=== PATIENT | male | born 1980 | race Caucasian/White ===

== ENCOUNTER 2017-05-09 22:02 | Emergency (ER) | payer BC ==
[~2017-05-09] VITALS: Ht 177.8 cm; Wt 122.0 kg
[~2017-05-09 22:02] MED LIST: ALKA-SELTZER O1 EACH PO; AMITRIPTYLINE H25 MG PO; BACTRIM DS TAB1 EACH PO; BUSPIRONE HCL15 MG PO; CARAFATE1 GM PO; CARBAMAZEPINE200 M1 PO; CELEBREX200 MG PO; CEPHALEXIN500 MG PO; CYCLOBENZAPRINE10 MG PO; DIAZEPAM2 MG PO; METHOCARBAMOL750 MG PO; NORCO 5-325 TA1 EACH PO; PRILOSEC20 MG PO; PROTONIX40 MG PO; ROBAXIN-750750 MG PO; TAMIFLU75 MG PO; TEGRETOL XR100 MG PO; TOPIRAMATE50 MG PO; VALIUM5 MG PO; ZOFRAN ODT4 MG SL
[2017-05-09] MEDS ORDERED: DIAZEPAM2 MG PO (22:33)
--- NOTE | 2017-05-10 22:35 | EKG ---
[facility] [address] [facility] [place], [place] [address] Signed Normal sinus rhythm Normal ECG When compared with ECG of 02-SEP-2016 22:46, No significant change was found Confirmed by LILLIAN QUINTANILLA MD ([id number]) on 05/10/2017 10:35:14 PM Electronically Signed By: LILLIAN QUINTANILLA MD 05/10/17 2235 PATIENT NAME: SCOTTY STEPHENS ZINA Electrocardiogram DATE OF : 80 PHYSICIAN: LILLIAN QUINTANILLA MD REPORT #: [id number] REPORT IS CONFIDENTIAL AND NOT TO BE RELEASED WITHOUT AUTHORIZATION
== END 2017-05-09 22:58 | disposition home or self-care (01) ==
LOC: ED 22:02
DX: R07.89 Other chest pain (principal); K21.9 Gastro-esophageal reflux disease without esophagitis; F41.9 Anxiety disorder, unspecified; F17.200 Nicotine dependence, unspecified, uncomplicated; Z88.8 Allergy status to other drugs, medicaments and biological substances
CPT/HCPCS: 84484; 93005; 93010; 99283

== ENCOUNTER 2018-05-29 22:08 | Emergency (ER) | payer OTHER ==
[~2018-05-29] VITALS: Ht 177.8 cm; Wt 122.0 kg
--- NOTE | 2018-05-30 16:14 | EKG ---
[facility] [address] [facility] [place] [address] Signed Sinus tachycardia Nonspecific ST and T wave abnormality Abnormal ECG When compared with ECG of 09-MAY-2017 22:10, Nonspecific T wave abnormality now evident in Anterior leads Confirmed by LORY JAY MD ([id number]) on 05/30/2018 4:14:03 PM Electronically Signed By: LORY JAY MD 05/30/18 1614 PATIENT NAME: STEPHENSSCOTTYDolly IZAGUIRRE Electrocardiogram DATE OF : 80 PHYSICIAN: LORY JAY MD REPORT #: [id number] REPORT IS CONFIDENTIAL AND NOT TO BE RELEASED WITHOUT AUTHORIZATION
== END 2018-05-29 23:42 | disposition home or self-care (01) ==
LOC: ED 22:08
DX: R07.9 Chest pain, unspecified (principal); F17.200 Nicotine dependence, unspecified, uncomplicated
CPT/HCPCS: 71045; 80053; 84484; 85025; 85379; 93005; 93010; 99285

== ENCOUNTER → 2018-07-05 | Emergency (ER) | payer OTHER ==
[~2018-07-05] VITALS: Ht 177.8 cm; Wt 127.9 kg
--- OUTSIDE RECORDS SUMMARY | ~2018-07-05 | XMS | Encounter Summary ---
Demographics + + + | Address | [address] | | | [place] [address] | + + + | Home Phone | | + + + | Preferred Language | Unknown | + + + | Marital Status | | + + + | Mandaen Affiliation | Unknown | + + + | Race | Unknown | + + + | Ethnic Group | Unknown | + + + Author + + + | Author | [facility] | | | and [place] | + + + | Organization | [facility] | | | and [place] | + + + | Address | Unknown | + + + | Phone | Unavailable | + + + Support + + +---------+ + | Name | Relationship | Address | Phone | + + +---------+ + | Jessica Stahl | ECON | NA | | | | | Unknown | | + + +---------+ + Care Team Providers + +------+ + | Care Custodial Maintenance Worker Name | Role | Phone | + +------+ + | Fantasma Garcia MD | PCP | | + +------+ + Encounter Details +--------+ + + + + | Date | Type | Department | Care Team | Description | +--------+ + + + + | 04/04/ | Episode | [facility] | Marquita Millard | | | 2018 | Changes | GASTROENTEROLOGY | ROSIO Tellez | | | | | [address] [place] | | | | | | [address] | | | | | | [address] | | | | | | [phone] | | | +--------+ + + + + Social History + +-------+ +--------+ + | Tobacco Use | Types | Packs/Day | Years | Date | | | | | Used | | + +-------+ +--------+ + | Former Smoker | | 0.5 | 13 | 10/23/2001 - | | | | | | 12/21/2014 | + +-------+ +--------+ + + +------+---+ + | Smokeless Tobacco: | Chew | | Quit: | | Former User | | | 05/23/20 | | | | | 15 | + +------+---+ + + + +---------+ + | Alcohol Use | Drinks/We | oz/Week | Comments | | | ek | | | + + +---------+ + | Yes | 2 | 1.2 | FEW BEERS EACH WEEK | | | Standard | | | | | drinks or | | | | | | | | | | equivalen | | | | | t | | | + + +---------+ + + + + | Sex Assigned at | Date Recorded | | | | + + + | Not on file | | + + + as of this encounter Plan of Treatment +--------+---------+ + + + | Date | Type | Specialty | Care Team | Description | +--------+---------+ + + + | 07/09/ | Office | Physical Medicine | José Cano, | | | 2017 | Visit | and Rehabilitation | MD [address] | | | | | | [place] | | | | | | [address] | | | | | | | | +--------+---------+ + + + as of this encounter Visit Diagnoses Not on filein this encounter"
--- OUTSIDE RECORDS SUMMARY | ~2018-07-05 | XMS | Encounter Summary ---
Demographics + + + | Address | [address] | | | [place] [address] | + + + | Home Phone | | + + + | Preferred Language | Unknown | + + + | Marital Status | | + + + | Christian Affiliation | Unknown | + + + | Race | Unknown | + + + | Ethnic Group | Unknown | + + + Author + + + | Author | [facility] | | | and [place] | + + + | Organization | [facility] | | | [...] Team Providers + +------+ + | Care Cq Developer Name | Role | Phone | + +------+ + | Fantasma Garcia MD | PCP | | + +------+ + Encounter Details +--------+ + + + + | Date | Type | Department | Care Team | Description | +--------+ + + + + | 04/20/ | Ancillary | [facility] | Provider, | | | 2018 | Orders | MED CTR EXTERNAL | MD [address] | | | | | IMAGING | [address]te[address] | | | | | [phone] | [place] [address] | | +--------+ + + + + [...] Visit | and Rehabilitation | MD [address] | | | | | | [place] | | | | | | [address] | | | | | | | | +--------+---------+ + + + as of this encounter Results MRI Cervical Spine wo Contrast (04/11/2018 0755) + + + | Narrative | Performed At | + + + | External films for comparison only | [facility] | | | | | No results will be in the chart. | | + + + + +---------+ + + | Performing | Address | City/State/Zipcode | Phone Number | | Organization | | | | + +---------+ + + | [facility] | | | | + +---------+ + + XR Cervical Spine 4 or 5 Vws (04/02/2018 1200) + + + | Narrative | Performed At | + + + | External films for comparison only | [facility] | | | | | No results will be in the chart. | | + + + + +---------+ + + | Performing | Address | City/State/Zipcode | Phone Number | | Organization | | | | + +---------+ + + | [facility] | | | | + +---------+ + + FL Esophagram Complete (02/22/2017 1100) + + + | Narrative | Performed At | + + + | External films for comparison only | [facility] | | | | | No results will be in the chart. | | + + + + +---------+ + + | Performing | Address | City/State/Zipcode | Phone Number | | Organization | | | | + +---------+ + + | [facility] | | | | + +---------+ + + CT Abdomen Pelvis w Contrast (10/22/2016 0620) + + + | Narrative | Performed At | + + + | External films for comparison only | [facility] | | | | | No results will be in the chart. | | + + + + +---------+ + + | Performing | Address | City/State/Zipcode | Phone Number | | Organization | | | | + +---------+ + + | [facility] | | | | + +---------+ + + in this encounter Visit Diagnoses Not on filein this encounter"
--- OUTSIDE RECORDS SUMMARY | ~2018-07-05 | XMS | Clinical Summary ---
Demographics + + + | Address | [address] | | | [place] [address] | + + + | Home Phone | | + + + | Preferred Language | Unknown | + + + | Marital Status | | + + + | Denominational Affiliation | Unknown | + + + | Race | Unknown | + + + | Ethnic Group | Unknown | + + + Author + + + | Author | [facility] | | | and [place] | + + + | Organization | [facility] | | | and [...] Team Providers + +------+ + | Care Power Generation Technician Name | Role | Phone | + +------+ + | Fantasma Garcia MD | PP | | + +------+ + Allergies + + + + + + | Active Allergy | Reactions | Severity | Noted | Comments | | | | | Date | | + + + + + + | Buspirone | Nausea Only, Other | | 12/07/19 | dizzy | | | (See Comments) | | 16 | | + + + + + + Current Medications + + +--------+---------+------+------+-------+ | Prescription | Sig. | Disp. | Refills | Star | End | Statu | | | | | | t | Date | s | | | | | | Date | | | + + +--------+---------+------+------+-------+ | diazePAM (VALIUM) | Take 2 mg by mouth | | | 05/0 | | Activ | | 2 mg tablet | Daily. | | | 2/20 | | e | | | | | | 18 | | | + + +--------+---------+------+------+-------+ | nortriptyline | Take 25 mg by mouth | | | 05/0 | | Activ | | (PAMELOR) 25 mg | nightly. | | | 2/20 | | e | | capsule | | | | 18 | | | + + +--------+---------+------+------+-------+ | sucralfate | Take 1 tablet by | 120 | 1 | 05/0 | 05/0 | Activ | | (CARAFATE) 1 g | mouth 4 times daily. | tablet | | 07/12 | 07/12 | e | | tablet | | | | 18 | 19 | | + + +--------+---------+------+------+-------+ Active Problems + + + | Problem | Noted Date | + + + | NITO (obstructive sleep apnea) | 03/05/2018 | + + + | Morbid obesity with BMI of 40.0-44.9, adult (HCC) | 03/05/2018 | + + + | Incontinence of feces, unspecified fecal incontinence type | 03/05/2018 | + + + | JUSTUS (generalized anxiety disorder) | 01/24/2018 | + + + | Somatization disorder | 01/24/2018 | + + + | Burning sensation | 11/15/2016 | + + + | Episodes of speech arrest | 11/15/2016 | + + + | Severe anxiety | 11/15/2016 | + + + | Rectal bleeding | 12/24/2015 | + + + | Alcohol dependence, daily use (HCC) | 09/12/2014 | + + + | Nonspecific abnormal electrocardiogram (ECG) (EKG) | 09/12/2014 | + + + | Tobacco use disorder | 09/12/2014 | + + + | Headache | 08/05/2013 | + + + | Trigeminal neuralgia | 08/05/2013 | + + + | Gastroesophageal reflux disease, esophagitis presence not | | | specified | | + + + | HPV (human papilloma virus) infection | | + + + | Anxiety | | + + + | Depression | | + + + | Anal warts | | + + + | Pseudoseizures | | + + + | Genital herpes | | + + + | Dysphagia | | + + + | Chronic abdominal pain | | + + + Encounters +--------+ + + + + | Date | Type | Specialty | Care Team | Description | +--------+ + + + + | 06/26/ | Abstract | | José Cano | | | 2017 | | | | | +--------+ + + + + | 04/20/ | Ancillary | | [place], | | | 2017 | Orders | | MD Jeremi | | +--------+ + + + + | 04/20/ | Procedure | | | | | 2017 | Pass | | | | +--------+ + + + + | 04/12/ | Procedure | | | | | 2017 | Pass | | | | +--------+ + + + + | 04/11/ | Imaging | | [place], | | 2017 | Exam | | MD Jeremi | | +--------+ + + + + | 04/09/ | Telephone | | Isaiah Roe MD | Procedure | | 2017 | | | | | +--------+ + + + + | 04/04/ | Episode | | Marquita Millard | | | 2018 | Changes | | M RN | | +--------+ + + + + from Last 3 Months Immunizations + + + + | Name | Dates Previously Given | Next Due | + + + + | INFLUENZA, | 09/13/2014, 09/12/2008 | | | UNSPECIFIED | | | | FORMULATION | | | + + + + | TDAP, UNSPECIFIED | 02/19/2013 | | | FORMULATION | | | + + + + Family History + + +--------+ + | Medical History | Relation | Name | Comments | + + +--------+ + | Hypertension | Father | | | + + +--------+ + | Coronary artery | Maternal | | | | disease | Grandfath | | | | | er | | | + + +--------+ + | Hypertension | Mother | Jessica | | | | | Winter | | + + +--------+ + | Brain cancer | Other | | Cousin | + + +--------+ + | Heart disease | Paternal | | | | | Grandfath | | | | | er | | | + + +--------+ + | Stroke | Paternal | | | | | Grandfath | | | | | er | | | + + +--------+ + + +--------+--------+ + | Relation | Name | Status | Comments | + +--------+--------+ + | Father | | Alive | | + +--------+--------+ + | Maternal Grandfather | | | | + +--------+--------+ + | Mother | Jessica | Alive | | | | Winter | | | + +--------+--------+ + | Other | | | | + +--------+--------+ + | Paternal Grandfather | | | | + +--------+--------+ + Social History + +-------+ +--------+ + [...] | 05/23/20 | | | | | 17 | + +------+---+ + + + | Tobacco Cessation: Ready to Quit: No; Counseling Given: Yes | + + + + +---------+ + | Alcohol Use | Drinks/We | oz/Week | Comments | | | ek | | | + + +---------+ + | Yes | 14 Cans | 8.4 | | | | of beer | | | + + +---------+ + + + + | Sex Assigned at | Date Recorded | | | | + + + | Not on file | | + + + Last Filed Vital Signs + + + + | Vital Sign | Reading | Time Taken | + + + + | Blood Pressure | 102/80 | 02/28/2018956 PDT | + + + + | Pulse | 74 | 02/28/2018956 PDT | + + + + | Temperature | 36.6 C (97.8 F) | 02/28/2018956 PDT | + + + + | Respiratory Rate | 16 | 02/28/2018956 PDT | + + + + | Oxygen Saturation | 96% | 02/28/2018956 PDT | + + + + | Inhaled Oxygen | - | - | | Concentration | | | + + + + | Weight | 128.6 kg (283 lb 8.2 | 02/28/2018956 PDT | | | oz) | | + + + + | Height | 177.8 cm (5' 10") | 02/28/2018956 PDT | + + + + | Body Mass Index | 40.68 | 02/28/2018 0957 PDT | + + + + Plan of Treatment +--------+---------+ + + + | Date | Type | Specialty | Care Team | Description | +--------+---------+ + + + | 07/09/ | Office | | José Cano, | | | 2017 | Visit | | MD [address] | | | | | | [place] | | | | | | [address] | | | | | | | | +--------+---------+ + + + + + + + + | Health Maintenance | Due Date | Last Done | Comments | + + + + + | Vaccine: | | | | | Pneumococcal 19-64 | 9 | | | | (PPSV23 only) Medium | | | | | Risk (1 of - | | | | | PPSV23) | | | | + + + + + | Vaccine: Influenza | | 09/13/2014, 09/13/2014, | | | (#1) | 8 | 09/12/2008 | | + + + + + | Vaccine: | | 02/19/2013 | | | Dtap/Tdap/Td (2 - | 3 | | | | Td) | | | | + + + + + Procedures + +--------+ + + + | Procedure Name | Priori | Date/Time | Associated Diagnosis | Comments | | | ty | | | | + +--------+ + + + | MRI CERVICAL SPINE | Routin | 04/11/2018 | | Results for this | | WO CONTRAST | e | 075 PDT | | procedure are in the | | | | | | results section. | + +--------+ + + + | IMAGING REPORT - | | 04/11/2018 | | Results for this | | EXTERNAL SCAN | | 0000 PDT | | procedure are in the | | | | | | results section. | + +--------+ + + + from Last 3 Months Results MRI Cervical Spine wo Contrast (04/11/2018 075) + + + | Narrative | Performed [...] | | | + +---------+ + + IMAGING REPORT - EXTERNAL SCAN (04/11/2018) + + + | Narrative | Performed At | + + + | Ordered by an | | | unspecified provider. | | + + + from Last 3 Months Insurance +-------+--------+ +------+-------+---------+ | Payer | Benefi | Subscriber | Type | Phone | Address | | | t Plan | ID | | | | | | / | | | | | | | Group | | | | | +-------+--------+ +------+-------+---------+ | UMR | UMR | [id number] | PPO | | | | | PPO | | | | | +-------+--------+ +------+-------+---------+ + +--------+ +--------+ + + | Guarantor Name | Accoun | Relation to | Date | Phone | Billing Address | | | t Type | Patient | of | | | | | | | | | | + +--------+ +--------+ + + | [facility] | Person | Self | [birth year] | Home: | [address] | | [address]Fam | | 1980 | [phone] | [place] | | | [place]ick | | | [phone] | [address] | + +--------+ +--------+ + +
--- OUTSIDE RECORDS SUMMARY | ~2018-07-05 | XMS | Encounter Summary ---
Demographics + + + | Address | [address] | | | [place] [address] | + + + | Home Phone | | + + + | Preferred Language | Unknown | + + + | Marital Status | Single | + + + | Spiritism Affiliation | Unknown | + + + | Race | Unknown | + + + | Ethnic Group | Unknown | + + + Author + + + | Author | [facility] | + + + | Organization | [facility] | + + + | Address | Unknown | + + + | Phone | Unavailable | + + + Support + + + + + | Name | Relationship | Address | Phone | + + + + + | Iman Stahl | ECON | [place] | | | | | [address] | | + + + + + | Jose Wallace | ECON | [place], [place] | | | | | [address] | | + + + + + Care Team Providers + +------+ + | Care Pen Rider Name | Role | Phone | + +------+ + | Fantasma Garcia MD | PCP | | + +------+ + Encounter Details +--------+ + + + + | Date | Type | Department | Care Team | Description | +--------+ + + + + | 04/18/ | Ancillary | Located Within [facility] | See, Medical | Diagnosis unknown | | 2018 | Orders | [facility] | Record | | | | | [address] | | | | | | [place] [address] | | | | | | [phone] | | | +--------+ + + + + Social History + +-------+ +--------+------+ | Tobacco Use | Types | Packs/Day | Years | Date | | | | | Used | | + +-------+ +--------+------+ | Current Every Day | | 0.5 | | | | Smoker | | | | | + +-------+ +--------+------+ + +---+---+---+ | Smokeless Tobacco: | | | | | Never Used | | | | + +---+---+---+ + + +---------+ + | Alcohol Use | Drinks/We | oz/Week | Comments | | | ek | | | + + +---------+ + | Yes | 28 Cans | 16.8 | | | | of beer | | | + + +---------+ + + + + | Sex Assigned at | Date Recorded | | | | + + + | Not on file | | + + + as of this encounter Plan of Treatment Not on fileas of this encounter Results X-ray cervical spine 4-5 views (04/02/2018 4:29 PM) + + + | Narrative | Performed At | + + + | This is a non-reportable procedure without a radiologist report and | [facility] | | is used for image storage only | [facility]IOLOGY | + + + + + + + + | Performing | Address | City/State/Zipcode | Phone Number | | Organization | | | | + + + + + | [facility] | [address] | [place] [address] | | + + + + + in this encounter Visit Diagnoses + + | Diagnosis | + + | Diagnosis unknown | + + | Other unknown and unspecified cause of morbidity or mortality | + +"
--- OUTSIDE RECORDS SUMMARY | ~2018-07-05 | XMS | Encounter Summary ---
Demographics + + + | Address | [address] | | | [place] [address] | + + + | Home Phone | | + + + | Preferred Language | Unknown | + + + | Marital Status | Single | + + + | Pentecostalism Affiliation | Unknown | + + + | Race | Unknown | + + + | Ethnic Group | Unknown | + + + Author + + + | Author | [facility] | + + + | Organization | [facility] | + + + | Address | Unknown | + + + | Phone | Unavailable | + + + Support + + + + + | Name | Relationship | Address | Phone | + + + + + | Iman Stahl | ECON | [place] | | | | | [address] | | + + + + + | Jose Wallace | ECON | [place], [place] | | | | | [address] | | + + + + + Care Team Providers + +------+ + | Care Senior Software Qa Analyst Name | Role | Phone | + +------+ + | Fantasma Garcia MD | PCP | | + +------+ + Encounter Details +--------+ + + + + | Date | Type | Department | Care Team | Description | +--------+ + + + + | 04/18/ | Hospital | [facility] | See, Medical | Diagnosis unknown | | 2018 | Encounter | [facility] | Record | | | | | RADIOLOGY [address] | | | | | [address] | | | | | | [place] [address] | | | | | | [phone] | | | +--------+ + + + [...] + + + as of this encounter Medications at Time of Discharge + + +--------+---------+ + + | Medication | Sig. | Disp. | Refills | Start | End Date | | | | | | Date | | + + +--------+---------+ + + | Vit-Fe | Take 1 tablet by | 30 | 1 | 09/13/20 | | | Fumarate-FA | mouth daily. | tablet | | 14 | | | ( PLUS | | | | | | | VITAMIN) 27-1 MG | | | | | | | tablet | | | | | | + + +--------+---------+ + + as of this encounter Plan of Treatment Not on fileas of this encounter Procedures + +--------+ + + + | Procedure Name | Priori | Date/Time | Associated Diagnosis | Comments | | | ty | | | | + +--------+ + + + | XR CERVICAL SPINE | Routin | 04/02/2018 | Diagnosis unknown | Results for this | | MIN 4 VIEWS | e | 4:29 PM | | procedure are in the | | | | PDT | | results section. | + +--------+ + + + in this encounter Results X-ray cervical spine 4-5 views (04/02/2018 4:29 PM) + + + | Narrative | Performed At | + + + | This is a non-reportable procedure without a radiologist report and | [facility] | | is used for image storage only | [facility] | + + + + + + + + | Performing | Address | City/State/Zipcode | Phone Number | | Organization | | | | + + + + + | [facility] | [address] | [place] [address] | | + + + + + in this encounter Visit Diagnoses + + | Diagnosis | + + | Diagnosis unknown | + + | Other unknown and unspecified cause of morbidity or mortality | + +"
--- OUTSIDE RECORDS SUMMARY | ~2018-07-05 | XMS | Clinical Summary ---
Demographics + + + | Address | [address] | | | [place] [address] | + + + | Home Phone | | + + + | Preferred Language | Unknown | + + + | Marital Status | | + + + | Buddhist Affiliation | Unknown | + + + | Race | White | + + + | Ethnic Group | Not or | + + + Author + + + | Author | [facility] | + + + | Organization | [facility] | + + + | Address | Unknown | + + + | Phone | Unavailable | + + + Support +------+ +---------+ + | Name | Relationship | Address | Phone | +------+ +---------+ + | NONE | ECON | Unknown | Unavailable | +------+ +---------+ + Care Team Providers + +------+ + | Care Pillowcase Folder Name | Role | Phone | + +------+ + | Fantasma Garcia MD | PP | | + +------+ + Source Comments [facility] on both [facility] and [facility] Allergies + + + + + + | Active Allergy | Reactions | Severity | Noted | Comments | | | | | Date | | + + + + + + | Buspirone | Nausea, Unknown | | 04/01/20 | dizzy | | | | | 16 | | + + + + + + Current Medications + +------+-------+---------+------+------+-------+ | Prescription | Sig. | Disp. | Refills | Star | End | Statu | | | | | | t | Date | s | | | | | | Date | | | + +------+-------+---------+------+------+-------+ | diazepam 2 mg oral | | | 0 | 05/2 | | Activ | | tablet | | | | 0/20 | | e | | | | | | 16 | | | + +------+-------+---------+------+------+-------+ | ondansetron ODT 4 | | | 0 | 04/0 | | Activ | | mg oral | | | | 6/20 | | e | | tablet,disintegratin | | | | 16 | | | | g | | | | | | | + +------+-------+---------+------+------+-------+ Active Problems + + + | Problem | Noted Date | + + + | JUSTUS (generalized anxiety disorder) | | + + + | Somatization disorder | | + + + | Pseudoseizures | | + + + Social History + +-------+ +--------+------+ | Tobacco Use | Types | Packs/Day | Years | Date | | | | | Used | | + +-------+ +--------+------+ | Never Smoker | | | | | + +-------+ +--------+------+ + + +---------+ + | Alcohol Use | Drinks/We | oz/Week | Comments | | | ek | | | + + +---------+ + | Yes | 2 | 1.2 | | | | Standard | | | [...] + + + | Blood Pressure | 127/85 | 04/01/2016 10:50 AM PDT | + + + + | Pulse | 74 | 04/01/2016 10:50 AM PDT | + + + + | Temperature | - | - | + + + + | Respiratory Rate | 16 | 04/01/2016 10:50 AM PDT | + + + + | Oxygen Saturation | - | - | + + + + | Inhaled Oxygen | - | - | | Concentration | | | + + + + | Weight | 76.7 kg (169 lb 1.6 | 04/01/2016 10:50 AM PDT | | | oz) | | + + + + | Height | 177.8 cm (5' 10") | 04/01/2016 10:50 AM PDT | + + + + | Body Mass Index | 24.26 | 04/01/2016 10:50 AM PDT | + + + + Plan of Treatment + + + + + | Health Maintenance | Due Date | Last Done | Comments | + + + + + | INFLUENZA VACCINE | | | | | (FLU SHOT) | 8 | | | + + + + + Results Not on filefrom Last 3 Months Insurance + +--------+ +------+ + + | Payer | Benefi | Subscriber | Type | Phone | Address | | | t Plan | ID | | | | | | / | | | | | | | Group | | | | | + +--------+ +------+ + + | [employer] | BCBS | [id number] | PPO | [phone] | [address] [place] | | SHIELD | OUT OF | [phone] | [phone] | [place], [place] | | | [place] | | | | [phone] | + +--------+ +------+ + + + +--------+ +--------+ + + | Guarantor Name | Accoun | Relation to | Date | Phone | Billing Address | | | t Type | Patient | of | | | | | | | | | | + +--------+ +--------+ + + | CH[facility] W[facility]ACE | Person | Self | [birth year] | Home: | [address] | | | al/Fam | | 1979 | [phone] | [place] [address] | | | rick | | | [phone] | | + +--------+ +--------+ + +
--- OUTSIDE RECORDS SUMMARY | ~2018-07-05 | XMS | Encounter Summary ---
Demographics + + + | Address | [address] | | | [place] [address] | + + + | Home Phone | | + + + | Preferred Language | Unknown | + + + | Marital Status | | + + + | Adventism Affiliation | Unknown | + + + | Race | Unknown | + + + | Ethnic Group | Unknown | + + + Author + + + | Author | [facility] | | | and [place] | + + + | Organization | [facility] | | | [...] Team Providers + +------+ + | Care Skull Chopper Name | Role | Phone | + +------+ + | Fantasma Garcia MD | PCP | | + +------+ + Reason for Visit + + + | Reason | Comments | + + + | Procedure | | + + + Encounter Details +--------+ + + + + | Date | Type | Department | Care Team | Description | +--------+ + + + + | 04/09/ | Telephone | [facility] | Isaiah Roe MD | Procedure | | 2018 | | GASTROENTEROLOGY | [address], [place] | | | | | [address] | [address] [place], [place] | | | | | [address] [place], [place] | [address] | | | | | [address] | | | | | | [phone] | | | +--------+ + + + [...] [place] | | | | | | [address] | | | | | | | | +--------+---------+ + + + as of this encounter Visit Diagnoses Not on filein this encounter"
--- OUTSIDE RECORDS SUMMARY | ~2018-07-05 | XMS | Encounter Summary ---
Demographics + + + | Address | [address] | | | [place] [address] | + + + | Home Phone | | + + + | Preferred Language | Unknown | + + + | Marital Status | | + + + | Baptist Affiliation | Unknown | + + + | Race | Unknown | + + + | Ethnic Group | Unknown | + + + Author + + + | Author | [facility] | | | and [place] | + + + | Organization | [facility] | | | [...] Team Providers + +------+ + | Care Sugar Presser Name | Role | Phone | + +------+ + | Fantasma Garcia MD | PCP | | + +------+ + Encounter Details +--------+ + + + + | Date | Type | Department | Care Team | Description | +--------+ + + + + | 04/12/ | Procedure | [facility] | | | | 2018 | Pass | [facility] OP | | | | | | [address] | | | | | | [place] | | | | | | [address] | | | | | | [phone] | | | +--------+ + + + [...] | Visit | and Rehabilitation | [address] | | | | | | [place] | | | | | | [address] | | | | | | | | +--------+---------+ + + + as of this encounter Visit Diagnoses Not on filein this encounter"
--- OUTSIDE RECORDS SUMMARY | ~2018-07-05 | XMS | Encounter Summary ---
Demographics + + + | Address | [address] | | | [place] [address] | + + + | Home Phone | | + + + | Preferred Language | Unknown | + + + | Marital Status | Single | + + + | Jew Affiliation | Unknown | + + + | Race | Unknown | + + + | Ethnic Group | Unknown | + + + Author + + + | Author | [facility] | + + + | Organization | [facility] | + + + | Address | Unknown | + + + | Phone | Unavailable | + + + Support + + + + + | Name | Relationship | Address | Phone | + + + + + | Iman Stahl | ECON | [place] | | | | | [address] | | + + + + + | Jose Wallace | ECON | [place], [place] | | | | | [address] | | + + + + + Care Team Providers + +------+ + | Care Supervising Editor Trailer Name | Role | Phone | + +------+ + | Fantasma Garcia MD | PCP | | + +------+ + Reason for Visit MRI/CAT Scan (Routine) + +--------+ + + + + | Status | Reason | Specialty | Diagnoses / | Referred By | Referred To | | | | | Procedures | Contact | Contact | + +--------+ + + + + | Pending | | Radiology | Diagnoses | See, | | | Review | | | Diagnosis | Medical | | | | | | unknown | Record | | | | | | Procedures | | | | | | | MRI cervical | | | | | | | spine | | | | | | | without | | | | | | | contrast | | | + +--------+ + + + + Encounter Details +--------+ + + + + | Date | Type | Department | Care Team | Description | +--------+ + + + + | 04/18/ | Hospital | [facility] | See, Medical | Diagnosis unknown | | 2018 | Encounter | [facility] | Record | | | | | RADIOLOGY [address] | | | | | | [address] | | | | | | [place] [address] | | | | | | [phone] | | | +--------+ + + + [...] CERVICAL SPINE | Routin | 04/11/2018 | Diagnosis unknown | Results for this | | WO CONTRAST | e | 4:30 PM | | procedure are in the | | | | PDT | | results section. | + +--------+ + + + in this encounter Results MRI cervical spine without contrast (04/11/2018 4:30 PM) + + + | Narrative | Performed At | + + + | This is a non-reportable procedure without a radiologist report and | [facility] | | is used for image storage only | [facility]IOLOGY | + + + + + + + + | Performing | Address | City/State/Zipcode | Phone Number | | Organization | | | | + + + + + | [facility] | [address] | [place] [address] | | + + + + + in this encounter Visit Diagnoses + + | Diagnosis | + + | Diagnosis unknown | + + | Other unknown and unspecified cause of morbidity or mortality | + +"
--- OUTSIDE RECORDS SUMMARY | ~2018-07-05 | XMS | Encounter Summary ---
Demographics + + + | Address | [address] | | | [place] [address] | + + + | Home Phone | | + + + | Preferred Language | Unknown | + + + | Marital Status | Single | + + + | Adventist Affiliation | Unknown | + + + | Race | Unknown | + + + | Ethnic Group | Unknown | + + + Author + + + | Author | [facility] | + + + | Organization | [facility] | + + + | Address | Unknown | + + + | Phone | Unavailable | + + + Support + + + + + | Name | Relationship | Address | Phone | + + + + + | Iman Stahl | ECON | [place] | | | | | [address] | | + + + + + | Jose Wallace | ECON | [place], [place] | | | | | [address] | | + + + + + Care Team Providers + +------+ + | Care Health Occupations Teacher Name | Role | Phone | + +------+ + | Fantasma Garcia MD | PCP | | + +------+ + Encounter Details +--------+ + + + + | Date | Type | Department | Care Team | Description | +--------+ + + + + | 04/18/ | Hospital | [facility] PH[facility]IAN | See, Medical | Diagnosis unknown | | 2018 | Encounter | [facility] | Record | | | | | RADIOLOGY [address] | | | | | | [address] | | | | | | [place] [address] | | | | | | [phone] | | | +--------+ + + + [...] | + + + + + | [facility] | [address] | [place] [address] | | + + + + + in this encounter Visit Diagnoses + + | Diagnosis | + + | Diagnosis unknown | + + | Other unknown and unspecified cause of morbidity or mortality | + +"
--- OUTSIDE RECORDS SUMMARY | ~2018-07-05 | XMS | Clinical Summary ---
Demographics + + + | Address | [address] | | | [place] [address] | + + + | Home Phone | | + + + | Preferred Language | Unknown | + + + | Marital Status | | + + + | Quaker Affiliation | Unknown | + + + [...] Team Providers + +------+ + | Care Bid Writer Name | Role | Phone | + +------+ + | Fantasma Garcia MD | PP | | + +------+ + Source Comments [facility]OMA is fully live on both [facility] and [facility] Allergies + + + + + + [...] | PPO | +1-- | [address] [address] [place] | | SHIELD | OUT OF | x | | [address] | [place], [place] | | | [place] | | | | [address] | + +--------+ +------+ + + + [...] | | al/Fam | | 1979 | +1-- | [place] [address] | | | [place] | | | [birth year] | | + +--------+ +--------+ + +
--- OUTSIDE RECORDS SUMMARY | ~2018-07-05 | XMS | Clinical Summary ---
Demographics + + + | Address | [address] | | | [place] [address] | + + + | Home Phone | | + + + | Preferred Language | Unknown | + + + | Marital Status | | + + + | Hinduism Affiliation | Unknown | + + + | Race | Unknown | + + + | Ethnic Group | Unknown | + + + Author + + + | Author | [facility] | | | and [place] | + + + | Organization | [facility] | | | and [...] Team Providers + +------+ + | Care Robotic Machine Tender Production Name | Role | Phone | + [...] [place] | | | | | | [address] | | | | | | | [...] +-------+--------+ +------+-------+---------+ | UMR | UMR | [id number] | PPO | | | | | [...] | [place] | | | [address] | [address] | + +--------+ +--------+ + +
--- OUTSIDE RECORDS SUMMARY | ~2018-07-05 | XMS | Encounter Summary ---
Demographics + + + | Address | [address] | | | [place] [address] | + + + | Home Phone | | + + + | Preferred Language | Unknown | + + + | Marital Status | Single | + + + | Yazidism Affiliation | Unknown | + + + | Race | Unknown | + + + | Ethnic Group | Unknown | + + + Author + + + | Author | [facility] | + + + | Organization | [facility] | + + + | Address | Unknown | + + + | Phone | Unavailable | + + + Support + + + + + | Name | Relationship | Address | Phone | + + + + + | Iman Stahl | ECON | [place] | | | | | [address] | | + + + + + | Jose Wallace | ECON | [place], [place] | | | | | [address] | | + + + + + Care Team Providers + +------+ + | Care Internet Technology Manager Name | Role | Phone | + +------+ + | Fantasma Garcia MD | PCP | | + +------+ + Reason for Referral MRI/CAT Scan (Routine) + +--------+ + + [...] + + | 04/18/ | Ancillary | [facility] | See, Medical | Diagnosis unknown | | 2017 | [facility] | [facility] MRI | Record | | | | | [address] | | | | | | [place] [address] | | | | | | [phone] | | | +--------+ + + + [...] Not on fileas of this encounter Results MRI cervical spine without [...] [facility] | [address] | [place] [address] | | + + + + + in this encounter Visit Diagnoses + + | Diagnosis | + + | Diagnosis unknown | + + | Other unknown and unspecified cause of morbidity or mortality | + +"
--- OUTSIDE RECORDS SUMMARY | ~2018-07-05 | XMS | Encounter Summary ---
Demographics + + + | Address | [address] | | | [place] [address] | + + + | Home Phone | | + + + | Preferred Language | Unknown | + + + | Marital Status | Single | + + + | Mu-Ism Affiliation | Unknown | + + + | Race | Unknown | + + + | Ethnic Group | Unknown | + + + Author + + + | Author | [facility] | + + + | Organization | [facility] | + + + | Address | Unknown | + + + | Phone | Unavailable | + + + Support + + + + + | Name | Relationship | Address | Phone | + + + + + | Iman Stahl | ECON | [place] | | | | | [address] | | + + + + + | Jose Wallace | ECON | [place], [place] | | | | | [address] | | + + + + + Care Team Providers + +------+ + | Care Regulatory Affairs Intern Name | Role | Phone | + [...] + + | 04/18/ | Ancillary | [facility] | See, Medical | Diagnosis unknown | | 2017 | [facility] | [facility] MRI | Record | | | | | [address] | | | | | | [place] [address] | | | | | | [phone] | | | +--------+ + + + [...] [facility] | [address] | [place] [address] | | + + + + + in this encounter Visit Diagnoses + + | Diagnosis | + + | Diagnosis unknown | + + | Other unknown and unspecified cause of morbidity or mortality | + +"
--- OUTSIDE RECORDS SUMMARY | ~2018-07-05 | XMS | Encounter Summary ---
Demographics + + + | Address | [address] | | | [place] [address] | + + + | Home Phone | | + + + | Preferred Language | Unknown | + + + | Marital Status | | + + + | Uatsdin Affiliation | Unknown | + + + [...] Team Providers + +------+ + | Care Rate And Cost Analyst Name | Role | Phone | [...] 2018 | | GASTROENTEROLOGY | [address], [place] | | | | | [address] | [address] [place], [place] | | | | | [address] [place], [place] | [address] | | | | | [address] | | | | | | [phone] | | | +--------+ + + + [...] [place] | | | | | | [address] | | | | | | | | +--------+---------+ + + + as of this encounter Visit Diagnoses Not on filein this encounter"
--- OUTSIDE RECORDS SUMMARY | ~2018-07-05 | XMS | Encounter Summary ---
Demographics + + + | Address | [address] | | | [place] [address] | + + + | Home Phone | | + + + | Preferred Language | Unknown | + + + | Marital Status | | + + + | Caodaism Affiliation | Unknown | + + + [...] Team Providers + +------+ + | Care Piped Pocket Machine Operator Name | Role | Phone | + +------+ + | Fantasma Garcia MD | PCP | | + +------+ + Encounter Details +--------+ + + + + | Date | Type | Department | Care Team | Description | +--------+ + + + + | 06/26/ | Abstract | [facility] | José Cano, | | | 2018 | | PHYSIATRY [address] | [address] | | | | | [place], | [place], [place] | | | | | [place] [address] | [address] | | | | | [phone] | | | +--------+ + + + [...] [address] | | | | | | [place] | | | | | | [address] | | | | | | | | +--------+---------+ + + + as of this encounter Visit Diagnoses Not on filein this encounter"
--- OUTSIDE RECORDS SUMMARY | ~2018-07-05 | XMS | Encounter Summary ---
Demographics + + + | Address | [address] | | | [place] [address] | + + + | Home Phone | | + + + | Preferred Language | Unknown | + + + | Marital Status | | + + + | Scientology Affiliation | Unknown | + + + | Race | Unknown | + + + | Ethnic Group | Unknown | + + + Author + + + | Author | [facility] | | | and [place] | + + + | Organization | [facility] | | [...] Team Providers + +------+ + | Care Pure Pak Machine Operator Name | Role | Phone | + +------+ + | Fantasma Garcia MD | PCP | | + +------+ + Encounter Details +--------+ + + + + | Date | Type | Department | Care Team | Description | +--------+ + + + + | 04/20/ | Procedure | [facility] | | | | 2018 | Pass | MED CTR EXTERNAL | | | | | | IMAGING | | | | | | [phone] | | | +--------+ + + + [...] [place] | | | | | | [address] | | | | | | | | +--------+---------+ + + + as of this encounter Visit Diagnoses Not on filein this encounter"
--- OUTSIDE RECORDS SUMMARY | ~2018-07-05 | XMS | Encounter Summary ---
Demographics + + + | Address | [address] | | | [place] [address] | + + + | Home Phone | | + + + | Preferred Language | Unknown | + + + | Marital Status | Single | + + + | Synagogue Affiliation | Unknown | + + + | Race | Unknown | + + + | Ethnic Group | Unknown | + + + Author + + + | Author | [facility] | + + + | Organization | [facility] | + + + | Address | Unknown | + + + | Phone | Unavailable | + + + Support + + + + + | Name | Relationship | Address | Phone | + + + + + | Iman Stahl | ECON | [place] | | | | | [address] | | + + + + + | Jose Wallace | ECON | [place], [place] | | | | | [address] | | + + + + + Care Team Providers + +------+ + | Care Ocean Import Representative Name | Role | Phone | + [...] + + | 04/18/ | Hospital | [facility] PH[facility] | See, Medical | Diagnosis unknown | | 2018 | Encounter | [facility] | Record | | | | | RADIOLOGY [address] | | | | | | [address] | | | | | | [place] [address] | | | | | | [phone] | | | +--------+ + + + [...] [facility] | [address] | [place] [address] | | + + + + + in this encounter Visit Diagnoses + + | Diagnosis | + + | Diagnosis unknown | + + | Other unknown and unspecified cause of morbidity or mortality | + +"
--- OUTSIDE RECORDS SUMMARY | ~2018-07-05 | XMS | Encounter Summary ---
Demographics + + + | Address | [address] | | | [place] [address] | + + + | Home Phone | | + + + | Preferred Language | Unknown | + + + | Marital Status | | + + + | Gnosticist Affiliation | Unknown | + + + | Race | Unknown | + + + | Ethnic Group | Unknown | + + + Author + + + | Author | [facility] | | | and [place] | + + + | Organization | [facility] | | | [...] Team Providers + +------+ + | Care Metal Alloy Scientist Name | Role | Phone | [...] [place] | | | | | | [address] | | | | | | [phone] | | | +--------+ + + + [...] [place] | | | | | | [address] | | | | | | | | +--------+---------+ + + + as of this encounter Visit Diagnoses Not on filein this encounter"
--- OUTSIDE RECORDS SUMMARY | ~2018-07-05 | XMS | Encounter Summary ---
Demographics + + + | Address | [address] | | | [place] [address] | + + + | Home Phone | | + + + | Preferred Language | Unknown | + + + | Marital Status | | + + + | Advent Affiliation | Unknown | + + + | Race | Unknown | + + + | Ethnic Group | Unknown | + + + Author + + + | Author | [facility] | | | and [place] | + + + | Organization | [facility] | | | [...] Team Providers + +------+ + | Care Cpas Name | Role | Phone | + [...] | PHYSIATRY [address] | [address] | | | | | [place], | [place], [place] | | | | | [place] [address] | [address] | | | | | [phone] | | | +--------+ + + + [...] [place] | | | | | | [address] | | | | | | | | +--------+---------+ + + + as of this encounter Visit Diagnoses Not on filein this encounter"
--- OUTSIDE RECORDS SUMMARY | ~2018-07-05 | XMS | Encounter Summary ---
Demographics + + + | Address | [address] | | | [place] [address] | + + + | Home Phone | | + + + | Preferred Language | Unknown | + + + | Marital Status | Single | + + + | Yarsanism Affiliation | Unknown | + + + | Race | Unknown | + + + | Ethnic Group | Unknown | + + + Author + + + | Author | [facility] | + + + | Organization | [facility] | + + + | Address | Unknown | + + + | Phone | Unavailable | + + + Support + + + + + | Name | Relationship | Address | Phone | + + + + + | Iman Stahl | ECON | [place] | | | | | [address] | | + + + + + | Jose Wallace | ECON | [place], [place] | | | | | [address] | | + + + + + Care Team Providers + +------+ + | Care Automatic Casting Machine Operator Name | Role | Phone | + +------+ + | Fantasma Garcia MD | PCP | | + +------+ + Encounter Details +--------+ + + + + | Date | Type | Department | Care Team | Description | +--------+ + + + + | 04/18/ | Procedure | [facility] | | | | 2017 | Pass | [facility] | | | | | | RADIOLOGY [address] | | | | | | [address] | | | | | | [place] [address] | | | | | | [phone] | | | +--------+ + + + [...] Treatment Not on fileas of this encounter Visit Diagnoses Not on filein this encounter"
--- OUTSIDE RECORDS SUMMARY | ~2018-07-05 | XMS | Clinical Summary ---
Demographics + + + | Address | [address] | | | [place] [address] | + + + | Home Phone | | + + + | Preferred Language | Unknown | + + + | Marital Status | Single | + + + | Quaker Affiliation | Unknown | + + + | Race | Unknown | + + + | Ethnic Group | Unknown | + + + Author + + + | Author | [facility] | + + + | Organization | [facility] | + + + | Address | Unknown | + + + | Phone | Unavailable | + + + Support + + + + + | Name | Relationship | Address | Phone | + + + + + | Iman Stahl | ECON | [place] | | | | | [address] | | + + + + + | Jose Wallace | ECON | [place], [place] | | | | | [address] | | + + + + + Care Team Providers + +------+ + | Care Sap Fico Business Analyst Name | Role | Phone | + +------+ + | Fantasma Garcia MD | PP | | + +------+ + Allergies No Known Allergies Current Medications + + +--------+---------+------+------+-------+ | Prescription | Sig. | Disp. | Refills | Star | End | Statu | | | | | | t | Date | s | | | | | | Date | | | + + +--------+---------+------+------+-------+ | Vit-Fe | Take 1 tablet by | 30 | 1 | 11/2 | | Activ | | Fumarate-FA | mouth daily. | tablet | | 12/12 | | e | | ( PLUS | | | | 14 | | | | VITAMIN) 27-1 MG | | | | | | | | tablet | | | | | | | + + +--------+---------+------+------+-------+ Active Problems + + + | Problem | Noted Date | + + + | Episodes of [...] + + | 04/18/ | Hospital | | See, Medical | Diagnosis unknown | | 2017 | Encounter | | Record | | +--------+ + + + + | 04/18/ | Hospital | | See, Medical | Diagnosis unknown | | 2017 | Encounter | | Record | | +--------+ + + + + | 04/18/ | Procedure | | | | | 2018 | Pass | | | | +--------+ + + + + | 04/18/ | Ancillary | | See, Medical | Diagnosis unknown | | 2017 | Orders | | Record | | +--------+ + + + + | 04/18/ | Ancillary | | See, Medical | Diagnosis unknown | | 2017 | Orders | | Record | | +--------+ + + + + [...] + +------+--------+ + Social History + +-------+ +--------+------+ | [...] + + + | Blood Pressure | 131/86 | 11/10/2016 2:14 PM PST | + + + + | Pulse | 90 | 11/10/2016 2:14 PM PST | + + + + | Temperature | 36.8 C (98.2 F) | 09/13/2014 3:56 PM PST | + + + + | Respiratory Rate | 16 | 09/13/2014 3:56 PM PST | + + + + | Oxygen Saturation | 96% | 09/13/2014 3:56 PM PST | + + + + | Inhaled Oxygen | - | - | | Concentration | | | + + + + | Weight | 113.4 kg (250 lb) | 11/10/2016 2:14 PM PST | + + + + | Height | 177.8 cm (5' 10") | 11/10/2016 2:14 PM PST | + + + + | Body Mass Index | 35.87 | 11/10/2016 2:14 PM PST | + + + + Plan of [...] + from Last 3 Months Results MRI cervical spine without contrast (04/11/2018 4:30 PM) + + + | Narrative | Performed At | + + + | This is a non-reportable procedure without a radiologist report and | [facility] | | is used for image storage only | [facility] | + + + + + + + + | Performing | Address | City/State/Zipcode | Phone Number | | Organization | | | | + + + + + | [facility] | [address] | [place] [address] | | + + + + + from Last 3 Months Insurance +---------+--------+ +------+-------+ + | Payer | Benefi | Subscriber | Type | Phone | Address | | | t Plan | ID | | | | | | / | | | | | | | Group | | | | | +---------+--------+ +------+-------+ + | PREMERA | PREMER | [id number] | | | [address] [address] | | | A BLUE | 3 | | | [place], [place] | | | CARD | | | | [phone] | +---------+--------+ +------+-------+ + + +--------+ +--------+ + + | Guarantor Name | Accoun | Relation to | Date | Phone | Billing Address | | | t Type | Patient | of | | | | | | | | | | + +--------+ +--------+ + + | CHI WALLACE | Person | Self [birth year] Home: | [address] | | | al/Fam | | 1980 | [phone] | [place] | | | [place] | | | [phone] | [address] | + +--------+ +--------+ + +
--- OUTSIDE RECORDS SUMMARY | ~2018-07-05 | XMS | Encounter Summary ---
Demographics + + + | Address | [address] | | | [place] [address] | + + + | Home Phone | | + + + | Preferred Language | Unknown | + + + | Marital Status | | + + + | Hinduism Affiliation | Unknown | + + + | Race | Unknown | + + + | Ethnic Group | Unknown | + + + Author + + + | Author | [facility] | | | and [place] | + + + | Organization | [facility] | | | [...] Team Providers + +------+ + | Care Wellness Spa Manager Name | Role | Phone | + +------+ + | Fantasma Garcia MD | PCP | | + +------+ + Encounter Details +--------+ + + + + | Date | Type | Department | Care Team | Description | +--------+ + + + + | 04/11/ | Imaging | [facility] | Provider, | | | 2018 | Exam | MED CTR EXTERNAL | MD [address] | | | | | IMAGING | [address] | | | | | [phone] | [place] [address] | | +--------+ + + + + [...] [place] | | | | | | [address] | | | | | | | [...] | | WO CONTRAST | e | 0755 PDT | | procedure are in the | | | | | | results section. | + +--------+ + + + in this encounter Results MRI Cervical Spine wo [...]
--- OUTSIDE RECORDS SUMMARY | ~2018-07-05 | XMS | Encounter Summary ---
Demographics + + + | Address | [address] | | | [place] [address] | + + + | Home Phone | | + + + | Preferred Language | Unknown | + + + | Marital Status | | + + + | Judaism Affiliation | Unknown | + + + | Race | Unknown | + + + | Ethnic Group | Unknown | + + + Author + + + | Author | [facility] | | | and [place] | + + + | Organization | [facility] | | | and [...] Team Providers + +------+ + | Care Corrosion Control Fitter Name | Role | Phone | + [...] | MED CTR EXTERNAL | [address] | | | | | IMAGING | [address] | | | | | [phone] | [place] [address] | | +--------+ + + + + [...] | | | | | [place] | | | | | | [address] | | | | | | | [...]
--- OUTSIDE RECORDS SUMMARY | ~2018-07-05 | XMS | Encounter Summary ---
Demographics + + + | Address | [address] | | | [place] [address] | + + + | Home Phone | | + + + | Preferred Language | Unknown | + + + | Marital Status | Single | + + + | Jain Affiliation | Unknown | + + + | Race | Unknown | + + + | Ethnic Group | Unknown | + + + Author + + + | Author | [facility] | + + + | Organization | [facility] | + + + | Address | Unknown | + + + | Phone | Unavailable | + + + Support + + + + + | Name | Relationship | Address | Phone | + + + + + | Iman Stahl | ECON | [place] | | | | | [address] | | + + + + + | Jose Wallace | ECON | [place], [place] | | | | | [address] | | + + + + + Care Team Providers + +------+ + | Care Tomato Grader Name | Role | Phone | + +------+ + | Fantasma Garcia MD | PCP | | + +------+ + Encounter Details +--------+ + + + + | Date | Type | Department | Care Team | Description | +--------+ + + + + | 04/18/ | Procedure | [facility] | | | | 2017 | Pass | [facility] | | | | | | RADIOLOGY [address] | | | | | | [address] | | | | | | [place] [address] | | | | | | [phone] | | | +--------+ + + + [...]
--- OUTSIDE RECORDS SUMMARY | ~2018-07-05 | XMS | Encounter Summary ---
Demographics + + + | Address | [address] | | | [place] [address] | + + + | Home Phone | | + + + | Preferred Language | Unknown | + + + | Marital Status | | + + + | Restorationist Affiliation | Unknown | + + + | Race | Unknown | + + + | Ethnic Group | Unknown | + + + Author + + + | Author | [facility] | | | and [place] | + + + | Organization | [facility] | | | [...] Team Providers + +------+ + | Care Mold Worker Name | Role | Phone | [...] IMAGING | | | | | | [phone] | | | +--------+ + + + [...] [place] | | | | | | [address] | | | | | | | | +--------+---------+ + + + as of this encounter Visit Diagnoses Not on filein this encounter"
--- OUTSIDE RECORDS SUMMARY | ~2018-07-05 | XMS | Encounter Summary ---
Demographics + + + | Address | [address] | | | [place] [address] | + + + | Home Phone | | + + + | Preferred Language | Unknown | + + + | Marital Status | | + + + | Muslim Affiliation | Unknown | + + + | Race | Unknown | + + + | Ethnic Group | Unknown | + + + Author + + + | Author | [facility] | | | and [place] | + + + | Organization | [facility] | | [...] Team Providers + +------+ + | Care Biomass Plant Manager Name | Role | Phone | [...] | MED CTR EXTERNAL | [address] | | | | | IMAGING | [address] | | | | | [phone] | [place] [address] | | +--------+ + + + + [...] [place] | | | | | | [address] | | | | | | | [...]
--- OUTSIDE RECORDS SUMMARY | ~2018-07-05 | XMS | Encounter Summary ---
Demographics + + + | Address | [address] | | | [place] [address] | + + + | Home Phone | | + + + | Preferred Language | Unknown | + + + | Marital Status | | + + + | Hindu Affiliation | Unknown | + + + | Race | Unknown | + + + | Ethnic Group | Unknown | + + + Author + + + | Author | [facility] | | | and [place] | + + + | Organization | [facility] | | | [...] Team Providers + +------+ + | Care Rag Cutting Machine Feeder Name | Role | Phone | + [...] [place] | | | | | | [address] | | | | | | [phone] | | | +--------+ + + + [...] [place] | | | | | | [address] | | | | | | | | +--------+---------+ + + + as of this encounter Visit Diagnoses Not on filein this encounter"
--- OUTSIDE RECORDS SUMMARY | ~2018-07-05 | XMS | Clinical Summary ---
Demographics + + + | Address | [address] | | | [place] [address] | + + + | Home Phone | | + + + | Preferred Language | Unknown | + + + | Marital Status | Single | + + + | Yazdanism Affiliation | Unknown | + + + | Race | Unknown | + + + | Ethnic Group | Unknown | + + + Author + + + | Author | [facility] | + + + | Organization | [facility] | + + + | Address | Unknown | + + + | Phone | Unavailable | + + + Support + + + + + | Name | Relationship | Address | Phone | + + + + + | Iman Stahl | ECON | [place] | | | | | [address] | | + + + + + | Jose Wallace | ECON | [place], [place] | | | | | [address] | | + + + + + Care Team Providers + +------+ + | Care Toy Assembly Supervisor Name | Role | Phone | [...] [facility] | [address] | [place] [address] | | + + + + + from Last 3 Months Insurance +---------+--------+ +------+-------+ + | Payer | Benefi | Subscriber | Type | Phone | Address | | | t Plan | ID | | | | | | / | | | | | | | Group | | | | | +---------+--------+ +------+-------+ + | PREMERA | PREMER | [id number] | | | [address] [address] | | | A BLUE | 3 | | | [place], [place] | | | CARD | | | | [address] | +---------+--------+ +------+-------+ + + +--------+ +--------+ + + | Guarantor Name | Accoun | Relation to | Date | Phone | Billing Address | | | t Type | Patient | of | | | | | | | | | | + +--------+ +--------+ + + | CHI WALLACE | Person | Self [birth year] Home: | [address] | | | al/Fam | | 1980 | [phone] | [place] | | | rick | | | [phone] | [address] | + +--------+ +--------+ + +
--- OUTSIDE RECORDS SUMMARY | ~2018-07-05 | XMS | Encounter Summary ---
Demographics + + + | Address | [address] | | | [place] [address] | + + + | Home Phone | | + + + | Preferred Language | Unknown | + + + | Marital Status | Single | + + + | Yarsani Affiliation | Unknown | + + + | Race | Unknown | + + + | Ethnic Group | Unknown | + + + Author + + + | Author | [facility] | + + + | Organization | [facility] | + + + | Address | Unknown | + + + | Phone | Unavailable | + + + Support + + + + + | Name | Relationship | Address | Phone | + + + + + | Iman Stahl | ECON | [place] | | | | | [address] | | + + + + + | Jose Wallace | ECON | [place], [place] | | | | | [address] | | + + + + + Care Team Providers + +------+ + | Care Assembler Fluorescent Lights Name | Role | Phone | + +------+ + | Fantasma Garcia MD | PCP | | + +------+ + Encounter Details +--------+ + + + + | Date | Type | Department | Care Team | Description | +--------+ + + + + | 04/18/ | Ancillary | [facility] | See, Medical | Diagnosis unknown | | 2018 | Orders | [facility] Xray | Record | | | | | [address] [facility] [address] | | | | | | [place] [address] | | | | | | [phone] | | | +--------+ + + + [...] [facility] | [address] | [place] [address] | | + + + + + in this encounter Visit Diagnoses + + | Diagnosis | + + | Diagnosis unknown | + + | Other unknown and unspecified cause of morbidity or mortality | + +"
--- OUTSIDE RECORDS SUMMARY | 2018-07-05 15:20 | XMS ---
PreManage Notification: SCOTTY STEPHENS Security Line Walker Events No recent Security Events currently on file CRITERIA MET - Group Notification CARE PROVIDERS There are no care providers on record at this time. Tyron has no Care Guidelines for this patient. Dominique VISIT COUNT (12 MO.) 2 [facility] TOTAL 2 NOTE: Visits indicate total known visits. ED/UCC VISIT TRACKING (12 MO.) 07/05/2018 15:14 [facility] [place] TYPE: Emergency COMPLAINT: - POSS DVT R LEG 05/29/2018 22:08 [facility] [place] TYPE: Emergency COMPLAINT: - CHEST PAIN,NON INJURY DIAGNOSES: - Chest pain, unspecified - Nicotine dependence, unspecified, uncomplicated INPATIENT VISIT TRACKING (12 MO.) No inpatient visits to display in this time frame [email or web address]
== END ==
LOC: ED 15:14
DX: S86.911A Strain of unspecified muscle(s) and tendon(s) at lower leg level, right leg, initial encounter (principal); F17.200 Nicotine dependence, unspecified, uncomplicated; Z88.8 Allergy status to other drugs, medicaments and biological substances; X50.9XXA Other and unspecified overexertion or strenuous movements or postures, initial encounter
CPT/HCPCS: 93971; 99283; 99406

== ENCOUNTER 2019-01-04 13:22 | Emergency (ER) | payer OTHER ==
[~2019-01-04] VITALS: Ht 177.8 cm; Wt 127.0 kg
--- OUTSIDE RECORDS SUMMARY | ~2019-01-04 | XMS | Encounter Summary ---
Demographics + + + | Address | [address] | | | [place] [address] | + + + | Home Phone | | + + + | Preferred Language | Unknown | + + + | Marital Status | | + + + | Holiness Affiliation | Unknown | + + + | Race | Unknown | + + + | Ethnic Group | Unknown | + + + Author + + + | Author | [facility] | + + + | Organization | [facility] | + + + | Address | Unknown | + + + | Phone | Unavailable | + + + Support + + + + + | Name | Relationship | Address | Phone | + + + + + | Iman Stahl | ECON | [place] | | | | | [address] | | + + + + + | Jose Wallace | ECON | [place] | | | | | [address] | | + + + + + Care Team Providers + +------+ + | Care Radio News Writer Name | Role | Phone | + +------+ + | Fantasma Garcia MD | PCP | | + +------+ + Reason for Visit Auth/Cert +--------+--------+ + + + + | Status | Reason | Specialty | Diagnoses / | Referred By | Referred To | | | | | Procedures | Contact | Contact | +--------+--------+ + + + + | | | | Diagnoses | | | | | | | varicocele, | | | | | | | desired | | | | | | | sterility | | | | | | | Procedures | | | | | | | VASECTOMY | | | +--------+--------+ + + + + Encounter Details +--------+---------+ + + + | Date | Type | Department | Care Team | Description | +--------+---------+ + + + | 01/02/ | Surgery | [facility] | Kenyon Mckinney, | VASECTOMY | | 2019 | | [facility] | DO [address] | | | | | Operating Room [address] | [address] [facility] | | | | | [address] | [place] [address] | | | | | [place] [address] | [phone] | | | | | [phone] | | | +--------+---------+ + + + Social History + +-------+ +--------+ + | Tobacco Use | Types | Packs/Day | Years | Date | | | | | Used | | + +-------+ +--------+ + | Former Smoker | | 0.5 | 10 | Quit: 12/13/2018 | + +-------+ +--------+ + + +---+---+---+ | Smokeless Tobacco: | | | | | Former User | | | | + +---+---+---+ + [...] + + + as of this encounter Last Filed Vital Signs + + + + | Vital Sign | Reading | Time Taken | + + + + | Blood Pressure | 121/74 | 01/02/2019 9:30 AM PDT | + + + + | Pulse | 81 | 01/02/2019 9:30 AM PDT | + + + + | Temperature | 36.4 C (97.6 F) | 01/02/2019 9:30 AM PDT | + + + + | Respiratory Rate | 18 | 01/02/2019 9:30 AM PDT | + + + + | Oxygen Saturation | 96% | 01/02/2019 9:30 AM PDT | + + + + | Inhaled Oxygen | - | - | | Concentration | | | + + + + | Weight | 133 kg (293 lb 3.4 | 01/02/2019 6:57 AM PDT | | | oz) | | + + + + | Height | 177.8 cm (5' 10") | 01/02/2019 6:57 AM PDT | + + + + | Body Mass Index | 42.07 | 01/02/2019 6:57 AM PDT | + + + + in this encounter Discharge Instructions Kenyon Mckinney DO - 01/02/2019Formatting of this note may be different from the original . Having a Vasectomy: Before, During, and After the Procedure The cut ends of the vas may be tied, closed with a clip, or sealed by heat (cauterized). Vasectomy is an outpatientprocedure. This means you can go home the same day. It can be d one in a doctor s office, clinic, or hospital. Your doctor will talk with you about how to get readyfor surgery. He or she will also discuss the possible risks and complications wi th you. After the procedure, follow your doctor s advice for recovery. Getting ready for surgery Your doctor will talk with you about getting ready for surgery. You may be asked to do the following: Sign a consent form. This must be done at least a few days before surgery. It gives your doctor permission to do the procedure. It also states that a vasectomy is not guaranteed to make you sterile. Don t take aspirin, ibuprofen, or naproxen [id number] before surgery. These medicin es can cause bleeding after the procedure. Also, tell your doctor if you take any medicines, supplements, or herbal remedies. Tell your doctor if you ve had anyscrotal surgery in the past. Arrange for an adult family member or friend to give you a ride home after surgery. Shower and clean your scrotum the day of surgery. Your doctor may also ask you to shave your scrotum. Bring a jock strap (athletic supporter) or pair of snug cotton briefs to the doctor s office or hospital. Eat no more than a light snack before surgery. During surgery The entire procedure usually lasts less [id number]. You ll be asked to undress and lie on a table. You may be given medicine to help you relax. To prevent pain during surgery, you ll be given an injection ofpain medicine in your scrotum or lower groin. Once the area is numb, the doctor makes one or two small incisionsin the scrotum. This may be done with a scalpel or with a pointed clamp (no-scalpel method). The vas deferens are lifted through the incision and cut. The provider seals off the end s of the vasdeferens using one of several methods. If needed, the incision is closed with stitches. You can rest for a while until you re ready to go home. Recovering at home For about a week, your scrotum may look bruised and slightly swollen. You may also have a s mall amount of bloody discharge from the incision. This is normal. To help make your recovery more comfortable, follow the tips below. Stay off your feet as much as possible for the [id number]. Try to lie flat on a bed or sofa. Wear an athletic supporter or snug cotton briefs for support. Reduce swelling by using an ice pack or bag of frozen peas wrapped in a thin towel. Put the ice pack ortowel on your scrotum. Take medicines with acetaminophento relieve any discomfort. Don t use aspirin, ibupr ofen, or naproxen. [id number] before bathing. Avoid heavy lifting or exercise [id number]. Ask your doctor how long to wait before having sex again. Remember: You must use another form of control until you re completely sterile. When to seek medical care Call your doctor if you notice any of the following after surgery: Increasing pain or swelling in your scrotum A large kgvdd-zpp-xfon area, or a growing lump Fever or chills Increasing redness or drainage of the incision Trouble urinating Sex after vasectomy Vasectomy doesn t change your sexual function. So when you start having sex again, it cecy uld feel the same as before. A vasectomy also shouldn t affect your relationship with your partner. It s important to remember, though, that you won t become sterile right away. It will take time before you can have sex without the need for control. Until you re sterile:After a vasectomy, some active sperm still remain in your semen . It will take time and many ejaculations before the sperm are completely gone. During this period, you must use another control method to prevent . To make sure no sper m are left in your semen, you ll need to have one or more semen exams. You usually collect a semen sample at home and bring it to a lab. The sample is then checked under a microscope . You re sterile only when these samples show no evidence of sperm. Ask your doctor liliane kelley additional follow-up is needed. After you re sterile:After your doctor tells you you re sterile, you no longer nee d to use any form of control. You re free to have sex without the fear of unwanted p regnancy. But a vasectomy does not protect you from sexually transmitted diseases (STDs). If you have more than one sex partner, be sure to practice safer sex by using condoms. Date Last Reviewed: 10/23/201619995728-8669 [employer]. [address] [place] [address], [place] [id number]. All [facility] reserved. This information is not intended as a substitute for professional medical care. Always follow your healthcare professional's instructions. After Your Surgery You ve just had surgery. During surgery, you received medication called anesthesia to anna p you comfortable and pain-free. After surgery, you may experience some pain or nausea. This is common. Going Home Have an adult family member or friend drive you home. For the first 24 hours after your radha kobe: ? Do not drive or use heavy equipment. ? Do not make important decisions or sign legal documents. ? Avoid alcohol. ? Have someone stay with you, if needed. He or she can watch for problems and help keep you safe. Be sure to keep all follow-up appointments with your doctor. And rest after your procedure for as long as your doctor tells you to. Coping with Pain If you have pain after surgery, pain medication will help you feel better. Take your medica tion as directed, before pain becomes severe. Consider other ways to control pain, such as with heat, ice, and relaxation. To get the best relief possible, remember these points: ? Pain medications can upset your stomach. Taking them with a little food may help. ? Most pain relievers taken by mouth need at least 20 to 30 minutes to take effect. ? Taking medication on a schedule can help you remember to take it. Try to time your medica tion so that you can take it before beginning an activity, such as dressing, walking, or sit ting down for dinner. ? Don t drink alcohol while taking pain medication. ? Don t drive or operate machinery while taking pain medications as they can slow your re flexes. If your health care provider tells you to take acetaminophen or ibuprofen to help relieve y our pain, ask him or her how much you are supposed to take each day. Constipation ? Constipation is a common side effect of pain medications and anesthetics. Contact your do ctor before taking any medications like laxatives or stool softeners to help relieve constip ation, unless they have been prescribed for you. ? Drinking lots of non-alcoholic fluids and eating foods like fruits and vegetables that ar e high in fiber can also help. Managing Nausea Some people have an upset stomach after surgery. This is often due to anesthesia, pain, jean n medications, or the stress of surgery. If you were on a special diet before surgery, ask your doctor if you should follow it during recovery. These tips may help: ? Don t push yourself to eat. Your body will tell you when to eat and how much. ? Start off with clear liquids and soup. They are easier to digest. Slowly move to solid f oods. Don t eat fatty, rich, or spicy foods at first. ? Don t force yourself to have three large meals a day. Instead, eat smaller amounts more often. Blood Clot Prevention Deep vein thrombosis (DVT) is a clot that forms in your deep veins usually in the leg o r thigh. A pulmonary embolism (PE) occurs when a clot in the bloodstream travels through th e heart and into the lungs. If the clot becomes stuck in a blood vessel in the lungs, blood flow can be blocked which causes life-threatening heart and lung problems. The following are prevention tips: ? Elevate your legs whenever they feel swollen or heavy ? Maintain a healthy weight ? Quit smoking ? Avoid sitting, standing, or lying down for long periods without moving your legs and feet . o When traveling by car, make frequent stops to get out and move around. o On long airplane, train, or bus rides, get up and move around when possible. o If you can t get up, wiggle your toes and tighten your calves to keep your blood moving . If you have any of these symptoms of DVT or PE, call your doctor: ? Swelling, pain, or both, often in one limb ? Redness or warmth, often in one limb ? Sudden, continuous pain deep in your muscle ? Worsening ache when you are active or when you stand still for a long time ? Rapid, pounding, or unusual heartbeat ? Sweating more than usual. ? Chest pain, trouble breathing, coughing up blood, skin turning blue, or fainting Call 911. in this encounter Medications at Time of Discharge + + +--------+---------+ + + | Medication | Sig. | Disp. | Refills | Start | End Date | | | | | | Date | | + + +--------+---------+ + + | diazePAM (VALIUM) | | | 1 | 12/22/19 | | | 2 MG tablet | | | | 19 | | + + +--------+---------+ + + | metoprolol | Take 50 mg by mouth | | | | | | (LOPRESSOR) 50 MG | 2 (two) times daily. | | | | | | tablet | | | | | | + + +--------+---------+ + + | sucralfate | Take 1 g by mouth. | | | 02/29/20 | | | (CARAFATE) 1 g | | | | 18 | 9 | | tablet | | | | | | + + +--------+---------+ + + | traMADol (ULTRAM) | Take 1 tablet by | 30 | 0 | 01/03/20 | | | 50 MG tablet | mouth every 6 (six) | tablet | | 19 | 9 | | | hours as needed for | | | | | | | Pain for up to 10 | | | | | | | days. | | | | | + + +--------+---------+ + + as of this encounter Plan of Treatment +--------+---------+ + + + | Date | Type | Specialty | Care Team | Description | +--------+---------+ + + + | 02/15/ | Office | Urology | Misael Bacon | | | 2018 | Visit | | [address] | | | | | [address] [place] | | | | | | [place] [address] | | | | | | [phone] | | | | | | | | +--------+---------+ + + + as of this encounter Procedures + +--------+ + + + | Procedure Name | Priori | Date/Time | Associated Diagnosis | Comments | | | ty | | | | + +--------+ + + + | PATHOLOGY HISTOLOGY | Routin | 01/02/2019 | | Results for this | | - TISSUE | e | 11:00 AM | | procedure are in the | | | | PDT | | results section. | + +--------+ + + + | VASECTOMY | | 01/02/2019 | varicocele, | | | | | 7:45 AM | desired sterility | | | | | PDT | | | + +--------+ + + + +---+--------+ | | | | | Specia | | | l | | | Needs | | | Sleep | | | apnea | | | no | | | CPAP | +---+--------+ + +------+ +---+ + | EK STANDARD 12 LEAD | [facility] | 01/02/2019 | | Results for this | | | | 7:08 AM | | procedure are in the | | | | PDT | | results section. | + +------+ +---+ + in this encounter Results Pathology histology - tissue (01/02/2019 11:00 AM) + + | Specimen | + + | Tissue | + + + + + | Narrative | Performed At | + + + | SPECIMEN(S): A RIGHT VAS DEFERENS SPECIMEN(S): B LEFT VAS DEFERENS | [facility] | | SPECIMEN SOURCE: A. RIGHT VAS DEFERENS B. LEFT VAS DEFERENS | PATHOLOGY | | CLINICAL HISTORY: Desired sterilization. FINAL PATHOLOGIC DIAGNOSIS: | | | A. Right vas deferens, sterilization: - Complete transection | | | of vas deferens. B. Left vas deferens, sterilization: | | | - Complete transection of vas deferens. DS:emb:C2NR | | | MICROSCOPIC EXAMINATION: Histologic sections of all submitted blocks | | | are examined by light microscopy. These findings, together with the | | | gross examination, support the pathologic diagnosis. GROSS | | | DESCRIPTION: Two specimens are received in two containers, labeled | | | "SB." A. The specimen, labeled "SB, right vas deferens," is | | | received in formalin and consists of a 1.1 x 0.3 cm firm tubular | | | tissue fragment. External surface is a white and smooth. The | | | specimen is inked and submitted whole in cassette (A1) and will be | | | cut at time of embedding. B. The specimen, labeled "SB, left vas | | | deferens," is received in formalin and consists of a 1.2 x 0.3 cm | | | firm tubular tissue fragment. External surface is a pink-red and | | | smooth. The specimen is submitted whole in cassette (A1) and will | | | be cut at time of embedding. FB (under the direct supervision of a | | | pathologist) The Gross Description was prepared using a voice | | | recognition system. The report was reviewed for accuracy; however, | | | sound-alike word errors, addition and/or deletions may occur. If | | | there is any question about this report, please contact Client | | | Services. PERFORMING LABORATORY: The technical component was | | | performed by [facility], [address] [place] [address] [place] [address] | | | (Optometric Assistant: Debbie Bennett MD; CLIA# [id number]). Professional | | | interpretation was performed by [facility], [facility] | | | [address] [address] (Medical | | | Director: Bismark He M.D.; CLIA#: [id number]). | | | Diagnostician: Prudencio Carreno MD Pathologist Electronically | | | Signed 01/03/2019 | | + + + + +---------+ + + | Performing | Address | City/State/Zipcode | Phone Number | | Organization | | | | + +---------+ + + | [facility] | | | | + +---------+ + + EKG STANDARD 12 LEAD (01/02/2019 7:08 AM) + + + + + | Component | Value | Ref Range | Performed At | + + + + + | Ventricular Rate | 70 | BPM | [facility] | + + + + + | Atrial Rate | 70 | BPM | [facility] | + + + + + | P-R Interval | 166 | ms | [facility] | + + + + + | QRS Duration | 82 | ms | [facility] | + + + + + | Q-T Interval | 372 | ms | [facility] | + + + + + | QTC Calculation | 401 | ms | [facility] | | (Bezet) | | | | + + + + + | Calculated P [place] | 28 | degrees | [facility] | + + + + + | Calculated R [place] | 14 | degrees | [facility] | + + + + + | Calculated T [place] | 13 | degrees | [facility] | + + + + + | Diagnosis | Normal sinus | | [facility] | | | rhythmNormal ECGWhen | | | | | compared with ECG of | | | | | 13-SEP-2014 13:39,Vent. | | | | | rate has decreased | | | | | BY 34 BPMQuestionable | | | | | change in QRS | | | | | axisNonspecific T wave | | | | | abnormality now evident | | | | | in Inferior leadsQT has | | | | | shortenedConfirmed by | | | | | Inder Welch MD | | | | | ([id number]) on 01/02/2019 | | | | | 8:48:12 PM | | | + + + + + + + + + + | Performing | Address | City/State/Zipcode | Phone Number | | Organization | | | | + + + + + | [facility] | [address] | [place] [address] | | + + + + + in this encounter Visit Diagnoses Not on filein this encounter Admitting Diagnoses + + | Diagnosis | + + | Varicocele | + + | Scrotal varices | + + | Vasectomy evaluation | + + | Other general counseling and advice for contraceptive management | + + Administered Medications + +--------+---------+------+------+------+ | Medication Order | MAR | Action | Dose | Rate | Site | | | Action | Date | | | | + +--------+---------+------+------+------+ + +---+ | acetaminophen (TYLENOL) | | | suppository 650 mg 650 mg, | | | Rectal, Every 6 Hours PRN, Mild | | | Pain (1-3), Fever, Starting Wed | | | 01/02/19 at 0925 | | + +---+ | | | + +---+ | acetaminophen (TYLENOL) tablet | | | 650 mg 650 mg, Oral, Every 6 | | | Hours PRN, Mild Pain (1-3), | | | Fever, Starting Mon01/02/19 at | | | 0925 | | + +---+ | | | + +---+ + +-------+ +-----+---+---+ | bacitracin ointment PRN, | Given | | 2 g | | | | Starting Mon01/02/19 at 0822, | | 9 08:22 | | | | | Intra-op | | PDT | | | | + +-------+ +-----+---+---+ +---+---+ | | | +---+---+ + +-------+ +--------+---+---+ | bupivacaine (PF) (MARCAINE) | Given | | 15 mLs | | | | 0.25 % injection PRN, Starting | | 9 08:22 | | | | | 01/02/19 at 0822, Intra-op | | PDT | | | | + +-------+ +--------+---+---+ +---+---+ | | | +---+---+ + +---------+ +---+ +---+ | electrolyte-A (PLASMALYTE-A) | New Bag | | | 30 mL/hr | | | solution at 30 mL/hr, | | 9 07:17 | | | | | Intravenous, Continuous, Starting | | PDT | | | | | 01/02/19 at 0730 | | | | | | + +---------+ +---+ +---+ + +---+ | | | + +---+ | fentaNYL (SUBLIMAZE) injection | | | 25 mcg 25 mcg, Intravenous, | | | Every 5 Min PRN, Pain, Option Two | | | for pain scale 1-4/10.If no | | | relief, proceed to option 3., | | | Starting Mon01/02/19 at 0830, | | | PACU | | + +---+ | | | + +---+ | fentaNYL (SUBLIMAZE) injection | | | 50 mcg 50 mcg, Intravenous, | | | Every 5 Min PRN, Pain, Option Two | | | for pain scale 5-10/10. If no | | | relief, proceed to option 3., | | | Starting Mon01/02/19 at 0830, | | | PACU | | + +---+ | | | + +---+ | HYDROcodone-acetaminophen | | | (NORCO) 10-325 MG per tablet 1 | | | tablet 1 tablet, Oral, Every 4 | | | Hours PRN, Severe Pain (7-10), | | | Starting Mon01/02/19 at 0925 | | + +---+ | | | + +---+ | HYDROcodone-acetaminophen | | | (NORCO) 5-325 MG per tablet 1 | | | tablet 1 tablet, Oral, Every 4 | | | Hours PRN, Moderate Pain (4-6), | | | Starting Mon01/02/19 at 0925 | | + +---+ | | | + +---+ | HYDROmorphone (DILAUDID) | | | injection 0.25 mg 0.25 mg, | | | Intravenous, Every 5 Min PRN, | | | Pain, Option One for pain scale | | | 1-4/10. If no relief, proceed to | | | option 2., Starting Mon01/02/19 | | | at 0830, PACU | | + +---+ | | | + +---+ | HYDROmorphone (DILAUDID) | | | injection 0.5 mg 0.5 mg, | | | Intravenous, Every 5 Min PRN, | | | Pain, Option One for pain scale | | | 5-10/10. If no relief, proceed to | | | option 2., Starting Mon01/02/19 | | | at 0830, PACU | | + +---+ | | | + +---+ | labetalol (NORMODYNE) 5 mg/mL | | | injection 20 mg 20 mg, | | | Intravenous, Every 10 Min PRN, | | | For MAP greater than 100, | | | Starting Mon01/02/19 at 0830, | | | PACU | | + +---+ | | | + +---+ | meperidine (DEMEROL) injection | | | 25 mg 25 mg, Intravenous, Every | | | 15 Min PRN, shivering, Starting | | | 01/02/19 at 0830, For 2 doses, | | | PACU | | + +---+ | | | + +---+ | metoclopramide (REGLAN) | | | injection 10 mg 10 mg, | | | Intravenous, Once PRN, Heartburn, | | | Option three for nausea or | | | vomiting, Starting Mon01/02/19 at | | | 0830, For 1 dose, PACU | | + +---+ | | | + +---+ | naloxone (NARCAN) injection 0.1 | | | mg 0.1 mg, Intravenous, PRN, | | | Opioid Reversal, if RR < 6, | | | Starting Mon01/02/19 at 0830, | | | PACU | | + +---+ | | | + +---+ | ondansetron (ZOFRAN) injection | | | 4 mg 4 mg, Intravenous, PRN, | | | Nausea, Vomiting, Option two for | | | nausea or vomiting, Starting Wed | | | 01/02/19 at 0830, For 2 doses, | | | PACU | | + +---+ | | | + +---+ | ondansetron (ZOFRAN) injection | | | 4 mg 4 mg, Intravenous, Every 6 | | | Hours PRN, Nausea, Vomiting, | | | Starting Mon01/02/19 at 0925 | | + +---+ | | | + +---+ | ondansetron (ZOFRAN-ODT) | | | disintegrating tablet 4 mg 4 mg, | | | Oral, Every 6 Hours PRN, Nausea, | | | Vomiting, Starting Mon01/02/19 | | | at 0925 | | + +---+ | | | + +---+ | promethazine (PHENERGAN) IVPB | | | 6.25 mg 6.25 mg, Intravenous, | | | Administer over 15 Minutes, PRN, | | | Nausea, Vomiting, Option one for | | | nausea and vomiting, Starting Wed | | | 01/02/19 at 0830, For 2 doses, | | | May repeat x 1 dose after 15 | | | minutes. If no relief in 10 | | | minutes, proceed to option two. | | | Notify Pharmacy to send | | | promethazine IVPB dose. | | + +---+ | | | + +---+ | sodium chloride (PF) 0.9 % | | | flush 10 mL 10 mL, Intravenous, | | | Every 8 Hours PRN, Line Care, | | | when tolerating oral fluids, | | | Starting 01/02/19 at 0925 | | + +---+ | | | + +---+ in this encounter
--- OUTSIDE RECORDS SUMMARY | ~2019-01-04 | XMS | Encounter Summary ---
Demographics + + + | Address | [address] | | | [place] [address] | + + + | Home Phone | | + + + | Preferred Language | Unknown | + + + | Marital Status | | + + + | Jain Affiliation | Unknown | + + + | Race | Unknown | + + + | Ethnic Group | Unknown | + + + Author + + + | Author | [facility] | + + + | Organization | [facility] | + + + | Address | Unknown | + + + | Phone | Unavailable | + + + Support + + + + + | Name | Relationship | Address | Phone | + + + + + | Iman Stahl | ECON | [place] | | | | | [address] | | + + + + + | Jose Wallace | ECON | [place] | | | | | [address] | | + + + + + Care Team Providers + +------+ + | Care Yard Operator Name | Role | Phone | + +------+ + | Sherry Garcia MD | PCP | | + +------+ + Reason for Visit + + + | Reason | Comments | + + + | Establish Care | Vasectomy Eval | + + + Consult and Treat (Routine) + + + + + + + | Status | Reason | Specialty | Diagnoses / | Referred By | Referred To | | | | | Procedures | Contact | Contact | + + + + + + + | Pending | Specialty | Urology | Diagnoses | Jose, | Hank, | | Review | Services | | Encounter | Sherry Juárez, | Kenyon Marinelli DO | | | Required | | for other | [address] | | | | | general | MARIA DOLORES, | [address] | | | | | counseling | [address] | | | | | and advice | [place], | [place], [place] | | | | | on | [place] [address] | [address] Phone: | | | | | contraceptio | Phone: | [phone] | | | | | n | [phone] | Fax: | | | | | | Fax: | [phone] | | | | | | [phone] | | + + + + + + + Encounter Details +--------+---------+ + + + | Date | Type | Department | Care Team | Description | +--------+---------+ + + + | 12/10/ | Office | UROLOGY [address] | Kenyon Mckinney, | Vasectomy evaluation | | 2019 | Visit | [address] | DO [address] | (Primary Dx); | | | | [place], [place] | [address] [place], | Varicocele | | | | [address] | [place] [address] | | | | | [phone] | [phone] | | | | | | | [...] + + + | Blood Pressure | 144/90 | 12/10/2018 1:03 PM PST | + + + + | Pulse | 86 | 12/10/2018 1:03 PM PST | + + + + | Temperature | - | - | + + + + | Respiratory Rate | 20 | 12/10/2018 1:03 PM PST | + + + + | Oxygen Saturation | 100% | 12/10/2018 1:03 PM PST | + + + + | Inhaled Oxygen | - | - | | Concentration | | | + + + + | Weight | 132.2 kg (291 lb 6.4 | 12/10/2018 1:03 PM PST | | | oz) | | + + + + | Height | 177.8 cm (5' 10") | 12/10/2018 1:03 PM PST | + + + + | Body Mass Index | 41.81 | 12/10/2018 1:03 PM PST | + + + + in this encounter Instructions Patient Instructions - Elvie Gilliam CMA - 12/10/2018 1:15 PM PSTPLAN Patient Financial Services PHONE # or #01: Proceed with Surgery on 01/02. 6 Week Follow-up from surgery 01/02 Wound Check #02: Informed Consent was obtained. #03: Please call to register and schedule Per Admission appointment for [facility]. It is important to have a Per Admission Appointment to assure your [facility] and [facility]. Location: ([address] [place] [address]) Time: The day before surgery someone from the hospital will call you to give you your arriv al time. Be advised, they will call you in the late afternoon or early evening. Please do not contact our office to find out your time of arrival. A pre-admission (registration) appointment will need to be done PRIOR to surgery. A schedu ler should contact you to set that appointment up. Need to cancel or reschedule your surgery, or post-op? Please call . If you have any surgery related questions or concerns, please contact our nurse at *IF YOU HAVE ANY FMLA/SHORT-TERM DISABILITY PAPERWORK THAT NEEDS TO BE FILLED OUT, PLEASE D ROP IT OFF OR FAX IT TO US ([phone]) AT LEAST 2 WEEKS PRIOR TO SURGERY. MAKE SURE TO IN CLUDE TIME OFF NEEDED/WHEN YOU PLAN TO RETURN TO WORK. #04. Please bring two pairs of "one-size too small" briefs, a chuck wagon driver and any music/video yo u'd like to enjoy during the procedure. #05 Please wear clothing easy to take off and on (like sweats and shoes easy to take off an d on) #06: Vasectomy Consultation I met with the patient to discuss his desire for permanent sterility. We discussed that a v asectomy is intended to be a permanent form of contraception. Nevertheless, the effect is no t immediate, and another form of contraception is required until vas occlusion has been conf irmed. The parameters to define vas occlusion were reviewed with the patient and are describ ed below. In addition, we discussed that a vasectomy is not considered 100% reliable in prev enting as there remains a persistent risk of after vasectomy in about 1 in 2,000 men who have no sperm or only rare non-motile sperm present. Rarely, late recanaliz ation and late failure can occur. A repeat vasectomy is very uncommon, occurring <2% of the time. We also discussed that there are options for fertility after a vasectomy, including va sectomy reversal and sperm retrieval with in vitro fertilization, but that these are not alw ays successful, and are often expensive. Again, it was emphasized that this is intended to b e a permanent form of contraception and should be considered irreversible. The risks of a vasectomy were discussed with the patient including but not limited to sympt omatic hematoma, infection and chronic scrotal pain in up to 1-2% of patients as well as epi didymitis, sperm granuloma and early or late recanalization. The patient was also made aware of other permanent and non-permanent alternatives to vasectomy. The patient wishes to proce ed with his bilateral partial vasectomy. Informed consent was obtained. 07: Testicular Cancer Screening The patient and I discussed the recommendations for testicular self examination, as he is i n the target age group. He understands that self examination is the standard for early detec tion for his cancer. 08: Proceed with bilateral partial vasectomy. 09: Informed consent was obtained and instructions provided. 10: Please bring two pairs of "one-size too small" briefs, a chuck wagon driver and any music/video you 'd like to enjoy during the procedure. 11: Continue self examination at least once per month POST-VASECTOMY CARE INSTRUCTIONS -- Rest with your feet elevated for the remainder of the day. -- For 48 hours after your vasectomy, do not engage in strenuous activity or lift objects t hat weigh more than 10 pounds. -- You should refrain from ejaculation for 10 days after vasectomy. -- You should also avoid straddle activities and heavy lifting/exercising during this time. -- You may shower the evening of the next day. -- Do not take a tub bath, hot-tub or swimming pool for five days after your procedure or u ntil after the stitches (if any) are gone. After bathing, pat dry the incisions with a clean towel. -- Keep the incisions clean and dry. -- Wear a scrotal supporter (athletic supporter) with fluff gauze in the pouch for three da ys after surgery. -- For the first 48 hours after your procedure, apply ice to your scrotum for 15 minutes ev zainab hour to relieve discomfort and swelling. Put ice cubes in a zipped plastic bag. Cover yo ur scrotum with clothing, a bed sheet or towel. Place the ice bag on your covered scrotum. -- You may take acetaminophen (Tylenol , generic brand) if needed for discomfort. -- Do not take more the 3000 mg of Tylenol (acetaminophen) and/or Tylenol-containing produc ts within a 24 hour time period. You are to inspect your incision daily for signs and symptoms of infection, these include: increased pain or tenderness on or near the incisions, increased redness or swelling around the wounds, drainage from the incisions, reopening of the wounds, or an oral temperature of 100.4 degrees F or more. If you develop any of these signs of infections please contact our office. POST-VASECTOMY FOLLOW-UP INSTRUCTIONS An alternative form of contraceptive should be used until vasectomy success is confirmed by post-vasectomy semen analysis. The first analysis will typically occur after 20 ejaculation s and about 8-16 weeks after your vasectomy. The semen should be brought to the lab within o ne hours and examined within 2 hours after ejaculation to evaluate sperm motility. Approxima tely 80% of men will have no sperm in their ejaculate 3 months after their vasectomy. A negative semen analysis is defined as one well-mixed uncentrifuged, fresh post-vasectomy semen specimen with azoospermia (no sperm) or only rare non-motile sperm (?100,000 non-motil e sperm/ml). If >100,000 non-motile sperm/ml persist beyond 6 months after vasectomy, then trends and cl inical judgement should be used to determine failure and need for a repeat vasectomy. If any motile sperm are seen on the post-vasectomy semen analysis at six months after vasec homero, this is considered a failure and a repeat vasectomy should be considered. COLLECTION OF SPERM ANAYSIS SPECIMEN SPECIMEN CAN ONLY BE ACCEPTED MONDAY THROUGH MONDAY BETWEEN THE HOURS OF 8:00.A.M. AND 2:00 P.M. THE SPECIMEN MUST BE BROUGHT TO THE [facility] AT [facility] L[facility] BELOW WITHIN T HE 30 MINUTES OF COLLECTION [facility] [address] in this encounter Progress Notes Kenyon Mckinney, DO - 12/10/2018 1:15 PM PSTFormatting of this note may be different from the original. Service: Urology Initial Consult Note Patient: Chi Wallace Date of Consultation: 12/10/2018 Primary Care Provider: SHERRY GARCIA History was obtained from: Patient Reason for Consultation: Desires sterility CHIEF COMPLAINT: Chief Complaint Patient presents with [facility] Vasectomy Eval HISTORY OF PRESENT ILLNESS Mr. Chi Wallace is a 38 y.o. year old male who desires permanent sterility. Stable relationship: Yes Partner present for discussion: No Partner supportive of this decision: Yes Children: Yes number: 4 ages: 14 Year old Female, 13 Year old Male, 11 Year old Female, 6 Year old Male The patient denies any previous inguinal/scrotal surgeries or significant trauma, palpable masses or testicular/scrotal pain. The patient denies any history of bleeding tendencies. Th e patient does not use any anticoagulation and has not taken any aspirin containing products for at least 7-10 days. Past Medical History Diagnosis Date Atrial fibrillation (HCC) Pt. states "born with heart murmur". GERD (gastroesophageal reflux disease) Joint pain Other chronic pain Sleep apnea Trigeminal neuralgia Unspecified visual disturbance History reviewed. No pertinent surgical history. DATA PSA: No results found for: PSA Creatinine: Lab Results Component Value Date CREATININE 1.28 09/13/2014 CBC: Lab Results Component Value Date WBC 10.2 09/13/2014 RBC 4.60 09/13/2014 HGB 14.3 09/13/2014 HCT 42.7 09/13/2014 MCV 92.8 09/13/2014 MCH 31.0 09/13/2014 MCHC 33.4 09/13/2014 RDW 43.3 09/13/2014 PLT 207 09/13/2014 MPV 8.6 09/13/2014 DIFFTYPE AUTOMATED 09/13/2014 CMP: Lab Results Component Value Date NA 137 09/13/2014 K 4.1 09/13/2014 CL 105 09/13/2014 CO2 27 09/13/2014 ANIONGAP 8 09/13/2014 GLUF 104 (H) 09/13/2014 BUN 13 09/13/2014 CREATININE 1.28 09/13/2014 BCR 10 09/13/2014 CA 8.7 09/13/2014 PROT 6.2 (L) 09/12/2014 ALB 3.6 09/12/2014 GLOB 2.7 09/12/2014 BILITOT 0.3 09/12/2014 ALP 101 09/12/2014 AST 24 09/12/2014 ALT 44 09/12/2014 EGFR >60 09/13/2014 BUN/Creatinine: Lab Results Component Value Date BUN 13 09/13/2014 CREATININE 1.28 09/13/2014 LDH: No results found for: LDH U/A: No results found for: COLORU, CLARITYU, MEROPENEM, LEUKOCYTESUR, NITRITE, UROBILINOGE N, UPRO, PHUR, BLOODU, KETONES, BILIRUBINUR, GLUCOSEU, EPIS HgBA1c: Lab Results Component Value Date HGBA1C 5.1 09/13/2014 LABGLYC 100 09/13/2014 REVIEW OF SYSTEMS Review of Systems Constitutional: Negative for fever and weight loss. Eyes: Positive for blurred vision. Respiratory: Positive for shortness of breath. Cardiovascular: Positive for chest pain. Gastrointestinal: Positive for abdominal pain and nausea. Negative for vomiting. Genitourinary: Negative for dysuria, flank pain, frequency, hematuria and urgency. Musculoskeletal: Negative for myalgias. Skin: Negative for rash. Neurological: Positive for dizziness and headaches. Negative for focal weakness. Endo/Heme/Allergies: Bruises/bleeds easily. Psychiatric/Behavioral: Negative for depression. PHYSICAL EXAM BP 144/90 | Pulse 86 | Resp 20 | Ht 1.778 m (5' 10") | Wt 132.2 kg (291 lb 6.4 oz) | S pO2 100% | BMI 41.81 kg/m Physical Exam Constitutional: He is oriented to person, place, and time. He appears well-developed and we ll-nourished. No distress. HENT: Head: Normocephalic and atraumatic. Eyes: Conjunctivae are normal. Neck: Neck supple. Cardiovascular: Normal rate. Pulmonary/Chest: Effort normal. Abdomina/Gl: Soft. He exhibits no distension and no mass. There is no tenderness. Genitourinary: Penis normal. Genitourinary Comments: Right vas palpable. Left varicocele prevents palpation of the left vas Musculoskeletal: Normal range of motion. He exhibits no edema. Neurological: He is alert and oriented to person, place, and time. Skin: Skin is warm and dry. No rash noted. Psychiatric: He has a normal mood and affect. Thought content normal. ASSESSMENT & PLAN 1: Vasectomy Consultation I met with the patient to discuss his desire for permanent sterility. We discussed that a v asectomy is intended to be a permanent form of contraception. Nevertheless, the effect is no t immediate, and another form of contraception is required until vas occlusion has been conf irmed. The parameters to define vas occlusion were reviewed with the patient and are describ ed below. In addition, we discussed that a vasectomy is not considered 100% reliable in prev enting as there remains a persistent risk of after vasectomy in about 1 in 2,000 men who have no sperm or only rare non-motile sperm present. Rarely, late recanaliz ation and late failure can occur. A repeat vasectomy is very uncommon, occurring <2% of the time. We also discussed that there are options for fertility after a vasectomy, including va sectomy reversal and sperm retrieval with in vitro fertilization, but that these are not alw ays successful, and are often expensive. Again, it was emphasized that this is intended to b e a permanent form of contraception and should be considered irreversible. The risks of a vasectomy were discussed with the patient including but not limited to sympt omatic hematoma, infection and chronic scrotal pain in up to 1-2% of patients as well as epi didymitis, sperm granuloma and early or late recanalization. The patient was also made aware of other permanent and non-permanent alternatives to vasectomy. The patient wishes to proce ed with his bilateral partial vasectomy. His varicocele, as discussed below, complicates his vasectomy options. His left vas is not palpable and would require more involved vasectomy. to that end, we will plan on vasectomy in the OR setting. He is aware of the increased ri sks of general anesthesia (cardiac events, arrhythmia, , etc). Informed consent was ob tained. 2: Testicular Cancer Screening The patient and I discussed the recommendations for testicular self examination, as he is i n the target age group. He understands that self examination is the standard for early detec tion for his cancer. 3: Left Varicocele He reports occasional discomfort from his left varicocele. However, this is not a common o r daily problem for. He is obviously not worried about continued fertility as well. Due to these, I would not recommend repair. PLAN: 1: Proceed with bilateral partial vasectomy in the OR setting 2: Informed consent was obtained and instructions provided. 3: Please bring two pairs of "one-size too small" briefs, a chuck wagon driver and any music/video you' d like to enjoy during the procedure. 4: Continue self examination at least once per month POST-VASECTOMY CARE INSTRUCTIONS -- Rest with your feet elevated for the remainder of the day. -- For 48 hours after your vasectomy, do not engage in strenuous activity or lift objects t hat weigh more than 10 pounds. -- You should refrain from ejaculation for 10 days after vasectomy. -- You should also avoid straddle activities and heavy lifting/exercising during this time. -- You may shower the evening of the next day. -- Do not take a tub bath, hot-tub or swimming pool for five days after your procedure or u ntil after the stitches (if any) are gone. After bathing, pat dry the incisions with a clean towel. -- Keep the incisions clean and dry. -- Wear a scrotal supporter (athletic supporter) with fluff gauze in the pouch for three da ys after surgery. -- For the first 48 hours after your procedure, apply ice to your scrotum for 15 minutes ev zainab hour to relieve discomfort and swelling. Put ice cubes in a zipped plastic bag. Cover yo ur scrotum with clothing, a bed sheet or towel. Place the ice bag on your covered scrotum. -- You may take acetaminophen (Tylenol , generic brand) if needed for discomfort. -- Do not take more the 3000 mg of Tylenol (acetaminophen) and/or Tylenol-containing produc ts within a 24 hour time period. You are to inspect your incision daily for signs and symptoms of infection, these include: increased pain or tenderness on or near the incisions, increased redness or swelling around the wounds, drainage from the incisions, reopening of the wounds, or an oral temperature of 100.4 degrees F or more. If you develop any of these signs of infections please contact our office. POST-VASECTOMY FOLLOW-UP INSTRUCTIONS An alternative form of contraceptive should be used until vasectomy success is confirmed by post-vasectomy semen analysis. The first analysis will typically occur after 20 ejaculation s and about 8-16 weeks after your vasectomy. The semen should be brought to the lab within o ne hours and examined within 2 hours after ejaculation to evaluate sperm motility. Approxima tely 80% of men will have no sperm in their ejaculate 3 months after their vasectomy. A negative semen analysis is defined as one well-mixed uncentrifuged, fresh post-vasectomy semen specimen with azoospermia (no sperm) or only rare non-motile sperm (?100,000 non-motil e sperm/ml). If >100,000 non-motile sperm/ml persist beyond 6 months after vasectomy, then trends and cl inical judgement should be used to determine failure and need for a repeat vasectomy. If any motile sperm are seen on the post-vasectomy semen analysis at six months after vasec homero, this is considered a failure and a repeat vasectomy should be considered. Thank you for allowing me to participate in the care of this patient. Please call if there are any additional questions. Kenyon Mckinney, DO 12/10/2018 in this encounter Plan of Treatment +--------+---------+ + + + | Date | Type | Specialty | Care Team | Description | +--------+---------+ + + + | 02/15/ | Office | Urology | Misael Bacon | | | 2018 | Visit | | OGPAL Malik | | | | | | [address] | | | | | | [place] [address] | | | | | | [phone] | | | | | | | | +--------+---------+ + + + as of this encounter Procedures + +--------+ + + + | Procedure Name | Priori | Date/Time | Associated Diagnosis | Comments | | | ty | | | | + +--------+ + + + | CASE REQUEST | Routin | 12/10/2018 | | | | OPERATING ROOM | e | 1:26 PM | | | | | | PST | | | + +--------+ + + + in this encounter Visit Diagnoses + + | Diagnosis | + + | Vasectomy evaluation - Primary | + + | Other general counseling and advice for contraceptive management | + + | Varicocele | + + | Scrotal varices | + +
--- OUTSIDE RECORDS SUMMARY | ~2019-01-04 | XMS | Encounter Summary ---
Demographics + + + | Address | [address] | | | [place] [address] | + + + | Home Phone | | + + + | Preferred Language | Unknown | + + + | Marital Status | | + + + | Samaritan Affiliation | Unknown | + + + | Race | Unknown | + + + | Ethnic Group | Unknown | + + + Author + + + | Author | [facility] | | | and [place] | + + + | Organization | [facility] | | | and [place] | + + + | Address | Unknown | + + + | Phone | Unavailable | + + + Support + + + + + | Name | Relationship | Address | Phone | + + + + + | Iman Stahl | ECON | [place], [place] | | | | | [address] | | + + + + + | Jose Wallace | ECON | [place], [place] | | | | | [address] | | + + + + + Care Team Providers + +------+ + | Care Dog Obedience Instructor Name | Role | Phone | + +------+ + | Fantasma Garcia MD | PCP | | + +------+ + Encounter Details +--------+ + + + + | Date | Type | Department | Care Team | Description | +--------+ + + + + | 11/23/ | Ancillary | [facility] | Provider, | | | 2019 | Orders | [facility] | MD [address] | | | | | IMAGING | [address] [place] | | | | | [phone] | [place] [address] | | +--------+ + + + + [...] 17 | + +------+---+ + + + +---------+ [...] Description | +--------+---------+ + + + | 02/04/ | Office | Physical Medicine | José Cano, | | | 2018 | Visit | and Rehabilitation | [address] | | | | | | [place], [place] | | | | | | [address] | | | | | | | | +--------+---------+ + + + as of this encounter Results XR Thoracic Spine 2 Vw (04/04/2013 1600) + + + | Narrative | Performed [...]
--- OUTSIDE RECORDS SUMMARY | ~2019-01-04 | XMS | Clinical Summary ---
Demographics + + + | Address | [address] | | | [place] [address] | + + + | Home Phone | | + + + | Preferred Language | Unknown | + + + | Marital Status | | + + + | Taoism Affiliation | Unknown | + + + | Race | Unknown | + + + | Ethnic Group | Unknown | + + + Author + + + | Author | [facility] | + + + | Organization | [facility] | + + + | Address | Unknown | + + + | Phone | Unavailable | + + + Support + + + + + | Name | Relationship | Address | Phone | + + + + + | Iman Stahl | ECON | [place] | | | | | [address] | | + + + + + | Jose Wallace | ECON | [place] | | | | | [address] | | + + + + + Care Team Providers + +------+ + | Care Still Operator Gin Name | Role | Phone | + +------+ + | Fantasma Garcia MD | PP | | + +------+ + Allergies + + + + + + | Active Allergy | Reactions | Severity | Noted | Comments | | | | | Date | | + + + + + + | Buspirone | Nausea Only, Other | Medium | 12/07/19 | dizzy | | | [...] + + +--------+---------+------+------+-------+ | diazePAM (VALIUM) | | | 1 | 03/0 | | Activ | | 2 MG tablet | | | | 1/20 | | e | | | | | | 19 | | | + + +--------+---------+------+------+-------+ | sucralfate | Take 1 g by mouth. | | | 05/0 | 05/0 | Activ | | (CARAFATE) 1 g | | | | 9/20 | 9/20 | e | | tablet | | | | 18 | 19 | | + + +--------+---------+------+------+-------+ | metoprolol | Take 50 mg by mouth | | | | | Activ | | (LOPRESSOR) 50 MG | 2 (two) times daily. | | | | | e | | tablet | | | | | | | + + +--------+---------+------+------+-------+ | traMADol (ULTRAM) | Take 1 tablet by | 30 | 0 | 03/1 | 03/2 | Activ | | 50 MG tablet | mouth every 6 (six) | tablet | | 3/20 | 3/20 | e | | | hours as needed for | | | 19 | 19 | | | | Pain for up to 10 | | | | | | | | days. | | | | | | + + +--------+---------+------+------+-------+ | Vit-Fe | Take 1 tablet by | 30 | 1 | 11/2 | 03/0 | Disco | | Fumarate-FA | mouth daily. | tablet | | 2/20 | 7/20 | ntinu | | ( PLUS | | | | 14 | 19 | ed | | VITAMIN) 27-1 MG | | | | | | | | tablet | | | | | | | + + +--------+---------+------+------+-------+ Active Problems + + + | Problem | Noted Date | + + + | Vasectomy evaluation | 12/10/2018 | + + + | Varicocele | 12/10/2018 | + + + | Episodes of speech arrest | 11/15/2016 | + + + | Burning sensation | 11/15/2016 | + + + | Severe anxiety | 11/15/2016 | + + + | Nonspecific abnormal electrocardiogram (ECG) (EKG) | 09/12/2014 | + + + | Tobacco use disorder | 09/12/2014 | + + + | Alcohol dependence, daily use | 09/12/2014 | + + + | Trigeminal neuralgia | 08/05/2013 | + + + | Headache(784.0) | 08/05/2013 | + + + Resolved Problems + + + + | Problem | Noted | Resolved | | | Date | Date | + + + + | Chest pain, rule out acute myocardial infarction | 09/12/20 | | | | 14 | 4 | + + + + Encounters +--------+ + + + + | Date | Type | Specialty | Care Team | Description | +--------+ + + + + | 01/02/ | Hospital | | Kenyon Mckinney, | Vasectomy | | 2019 | Encounter | | DO | evaluation; | | | | | | Varicocele | +--------+ + + + + | 01/02/ | Procedure | | | | | 2019 | Pass | | | | +--------+ + + + + | 01/02/ | Surgery | | Kenoyn Mckinney, | VASECTOMY | | 2019 | | | DO | | +--------+ + + + + | 01/01/ | Anesthesia | | Reno Huff, | | | 2018 | Event | | MD | | +--------+ + + + + | 12/10/ | Office | | Kenyon Mckinney, | Vasectomy evaluation | | 2019 | Visit | | DO | (Primary Dx); | | | | | | Varicocele | +--------+ + + + + from Last 3 Months Immunizations + + + + | Name | Dates Previously Given | Next Due | + + + + | INFLUENZA | 09/13/2014 | | | QUADRIVALENT 36+ MO | | | | PRESERV FREE | | | + + + + Family History + + +------+ + | Medical History | Relation | Name | Comments | + + +------+ + | Cancer | Cousin | | | + + +------+ + | Stroke | Maternal | | | | | Grandfath | | | | | er | | | + + +------+ + | Malig hypertherm | Neg Hx | | | + + +------+ + + +------+--------+ + | Relation | Name | Status | Comments | + +------+--------+ + | Cousin | | | | + +------+--------+ + | Father | | Alive | | + +------+--------+ + | Maternal Grandfather | | | | + +------+--------+ + | Mother | | Alive | | + +------+--------+ + Social History + +-------+ +--------+ + [...] | | | + +---+---+---+ + + | Tobacco Cessation: Ready to [...] + + | 02/15/ | Office | | Misael Bacon | | | 2019 | Visit | | GOPAL Malik | | | | | | [facility] | | | | | | [place] [address] | | | | | | [phone] | | | | | | | | +--------+---------+ + + + + + + + + | Health Maintenance | Due Date | Last Done | Comments | + + + + + | Vaccine: | | | | | Dtap/Tdap/Td (1 - | 9 | | | | Tdap) | | | | + + + + + | Vaccine: | | | | | Pneumococcal 19-64 | 9 | | | | (PPSV23 only) Medium | | | | | Risk (1 of 1 - | | | | | PPSV23) | | | | + + + + + | Vaccine: Influenza | | 09/13/2014 | | | (#1) | 8 | | | + + [...] | | | CPAP | +---+--------+ + +--------+ +---+ + | EKG STANDARD 12 LEAD | [facility] | 01/02/2019 | | Results for this | | | | 7:08 AM | | procedure are in the | | | | PDT | | results section. | + +--------+ +---+ + | CASE REQUEST | Routin | 12/10/2018 | | | | OPERATING ROOM | e | 1:26 PM | | | | | | PST | | | + +--------+ +---+ + from Last 3 Months Results Pathology histology - tissue (01/02/2019 11:00 AM) + + | Specimen | + + | Tissue | + + + + + | Narrative | Performed At | + + + | SPECIMEN(S): A RIGHT VAS DEFERENS SPECIMEN(S): B LEFT VAS DEFERENS | [facility] | | SPECIMEN SOURCE: A. RIGHT VAS [...] component was | | | performed by [facility] [place] [address] | | | (Forest Management Teacher: Debbie Bennett MD; CLIA# [id number]). Professional | | | interpretation was performed by [facility] | | | [address] [address] (Medical | | | Director: Bismark He M.D.; CLIA#: [id number]). | | | Diagnostician: Prudencio Carreno MD Pathologist Electronically | | | Signed 01/03/2019 | | + + + + +---------+ + + | Performing | Address | City/State/Zipcode | Phone Number | | Organization | | | | + +---------+ + + | [facility] | | | | + +---------+ [...] + + + + | Calculated P [place] | 28 | degrees | [facility] | + + + + + | Calculated R [place] | 14 | degrees | [facility] | + + + + + | Calculated T [place] | 13 | degrees | [facility] | + + + + + | Diagnosis | Normal sinus | | [facility] E[facility] | | | rhythmNormal ECGWhen | [...] | + + + + + | [facility] EK | [address] | [place] [address] | | + + + + + from Last 3 Months Insurance + +--------+ +------+-------+---------+ | Payer | Benefi | Subscriber | Type | Phone | Address | | | t Plan | ID | | | | | | / | | | | | | | Group | | | | | + +--------+ +------+-------+---------+ | [employer] | UNITED | [id number] | | | | | | | | | | | | | HEALTH | | | | | | | CARE - | | | | | | | UMR | | | | | + +--------+ +------+-------+---------+ + +--------+ +--------+ + + | Guarantor Name | Accoun | Relation to | Date | Phone | Billing Address | | | t Type | Patient | of | | | | | | | | | | + +--------+ +--------+ + + | SCOTTY WALLACE | Person | Self [birth year] | Home: | [address] | | | al/Fam | | 1980 | [phone] | [place] | | | rick | | | [phone] | [address] | + +--------+ +--------+ + +
--- OUTSIDE RECORDS SUMMARY | ~2019-01-04 | XMS | Encounter Summary ---
Demographics + + + | Address | [address] | | | [place] [address] | + + + | Home Phone | | + + + | Preferred Language | Unknown | + + + | Marital Status | | + + + | Sabianism Affiliation | Unknown | + + + | Race | Unknown | + + + | Ethnic Group | Unknown | + + + Author + + + | Author | [facility] | | | and [place] | + + + | Organization | [facility] | | | and [place] | + + + | Address | Unknown | + + + | Phone | Unavailable | + + + Support + + + + + | Name | Relationship | Address | Phone | + + + + + | Iman Stahl | ECON | [place] | | | | | [address] | | + + + + + | Jose Wallace | ECON | [place] | | | | | [address] | | + + + + + Care Team Providers + +------+ + | Care Research Manager Name | Role | Phone | + +------+ + | Fantasma Garcia MD | PCP | | + +------+ + Encounter Details +--------+ + + + + | Date | Type | Department | Care Team | Description | +--------+ + + + + | 11/19/ | Ancillary | [facility] | Provider, | | | 2019 | Orders | [facility] | [address] | | | | | IMAGING | [address] [place] | | | | | [phone] | [place] [address] | | +--------+ + + + + [...] [place] | | | | | | [address] | | | | | | | | +--------+---------+ + + + as of this encounter Visit Diagnoses Not on filein this encounter"
--- OUTSIDE RECORDS SUMMARY | ~2019-01-04 | XMS | Encounter Summary ---
Demographics + + + | Address | [address] | | | [place] [address] | + + + | Home Phone | | + + + | Preferred Language | Unknown | + + + | Marital Status | | + + + | Druze Affiliation | Unknown | + + + | Race | Unknown | + + + | Ethnic Group | Unknown | + + + Author + + + | Author | [facility] | + + + | Organization | [facility] | + + + | Address | Unknown | + + + | Phone | Unavailable | + + + Support + + + + + | Name | Relationship | Address | Phone | + + + + + | Iman Stahl | ECON | [place] | | | | | [address] | | + + + + + | Jose Wallace | ECON | [place] | | | | | [address] | | + + + + + Care Team Providers + +------+ + | Care Lactation Consultant Name | Role | Phone | + +------+ + | Fantasma Garcia MD | PCP | | + +------+ + Encounter Details +--------+ + + + + | Date | Type | Department | Care Team | Description | +--------+ + + + + | 01/02/ | Procedure | [facility] | | | | 2019 | [facility] | [facility] | | | | | | Operating Room [address] | | | | | | [address] | | | | | | [place] [address] | | | | | | [phone] | | | +--------+ + + + [...] | | | | | | [facility] | | | | | | [place] [address] | | | | | | [phone] | | | | | | | | +--------+---------+ + + + as of this encounter Visit Diagnoses Not on filein this encounter"
--- OUTSIDE RECORDS SUMMARY | ~2019-01-04 | XMS | Encounter Summary ---
Demographics + + + | Address | [address] | | | [place] [address] | + + + | Home Phone | | + + + | Preferred Language | Unknown | + + + | Marital Status | | + + + | Jainism Affiliation | Unknown | + + + | Race | Unknown | + + + | Ethnic Group | Unknown | + + + Author + + + | Author | [facility] | | | and [place] | + + + | Organization | [facility] | | | and [place] | + + + | Address | Unknown | + + + | Phone | Unavailable | + + + Support + + + + + | Name | Relationship | Address | Phone | + + + + + | Iman Stahl | ECON | [place], [place] | | | | | [address] | | + + + + + | Jose Wallace | ECON | [place] | | | | | [address] | | + + + + + Care Team Providers + +------+ + | Care Front Attendant Name | Role | Phone | + [...] [address] | | | | | [phone] | [place] [address] | | +--------+ + + + + [...] | | | | | | [place], [place] | | | | | | [address] | | | | | | | [...]
--- OUTSIDE RECORDS SUMMARY | ~2019-01-04 | XMS | Encounter Summary ---
Demographics + + + | Address | [address] | | | [place] [address] | + + + | Home Phone | | + + + | Preferred Language | Unknown | + + + | Marital Status | | + + + | Amish Affiliation | Unknown | + + + | Race | Unknown | + + + | Ethnic Group | Unknown | + + + Author + + + | Author | [facility] | + + + | Organization | [facility] | + + + | Address | Unknown | + + + | Phone | Unavailable | + + + Support + + + + + | Name | Relationship | Address | Phone | + + + + + | Iman Stahl | ECON | [place] | | | | | [address] | | + + + + + | Jose Wallace | ECON | [place] | | | | | [address] | | + + + + + Care Team Providers + +------+ + | Care Curriculum Counselor Name | Role | Phone | + [...] +--------+--------+ + + + + Encounter Details +--------+ + + + + | Date | Type | Department | Care Team | Description | +--------+ + + + + | 01/02/ | Hospital | [facility] | Kenyon Mckinney, | Vasectomy | | 2019 | Encounter | [facility] PACU | DO [address] | evaluation; | | | | [address] | [address] [place], | Varicocele | | | | [place] [address] | [place] [address] | | | | | [phone] | [phone] | | | | | | | | +--------+ + [...] + in this encounter Discharge Instructions Kenyon Mckinney, DO - 01/02/2019Formatting of this note may [...] Don t take aspirin, ibuprofen, or naproxen [id number] before surgery. These medicin es can cause [...] surgery The entire procedure usually lasts less [id number]. You ll be asked to undress and [...] feet as much as possible for the [id number]. Try to lie flat on a bed or sofa. Wear an athletic supporter or snug cotton briefs for support. Reduce swelling by using an ice pack or bag of frozen peas wrapped in a thin towel. Put the ice pack ortowel on your scrotum. Take medicines with acetaminophento relieve any discomfort. Don t use aspirin, ibupr ofen, or naproxen. [id number] before bathing. Avoid heavy lifting or exercise [id number]. Ask your doctor how long to wait before having sex again. Remember: You must use another form of control until you re completely sterile. When to seek medical care Call your doctor if you notice any of the following after surgery: Increasing pain or swelling in your scrotum A large btmrk-uaj-hvns area, or a growing lump Fever or [...] sex by using condoms. Date Last Reviewed: 10/23/201619996722-1898 [employer]. [address] [place] [address], [place] [id number]. All righ ts reserved. This information is not intended as a substitute for professional medical care. Always follow your healthcare professional's instructions. After Your Surgery You ve just had surgery. During surgery, you received medication called anesthesia to anna eleazar you comfortable and pain-free. After surgery, you [...] | | | | | [address] | | | | | | [place] [address] | | | | | | [phone] | | | | | | | [...] | +---+--------+ + +------+ +---+ + | [facility] STANDARD 12 LEAD | [facility] | 01/02/2019 [...] DEFERENS SPECIMEN(S): B LEFT VAS DEFERENS | [facility] | | SPECIMEN SOURCE: A. RIGHT VAS [...] component was | | | performed by [facility] [facility], [address] [facility] [address] | | | (Silver Wrapper: Debbie Bennett MD; CLIA# [id number]). Professional | | | interpretation was performed by [employer] [facility], [facility] | | | [address] [address] (Medical | | | Director: Bismark He M.D.; CLIA#: [id number]). | | | Diagnostician: Prudencio Carreno MD Pathologist Electronically | | | Signed 01/03/2019 | | + + + + +---------+ + + | Performing | Address | City/State/Zipcode | Phone Number | | Organization | | | | + +---------+ + + | [facility] | | | | + [...] + + + + | Calculated P [place] | 28 | degrees | [facility] | + + + + + | Calculated R [place] | 14 | degrees | [facility] | + + + + + | Calculated T [place] | 13 | degrees | [facility] [...] | + + + + + | [facility] E[facility] | [address] | [place] [address] | | + + + + + in this encounter Visit Diagnoses + + | Diagnosis | + + | Vasectomy evaluation | + + | Other general counseling and advice for contraceptive management | + + | Varicocele | + + | Scrotal varices | + + Admitting Diagnoses + + | Diagnosis | [...] | | | Pain (1-3), Fever, Starting Mon | | | 01/02/19 at 0925 | | + +---+ | | | + +---+ | acetaminophen (TYLENOL) tablet | | | 650 mg 650 mg, Oral, Every 6 | | | Hours PRN, Mild Pain (1-3), | | | Fever, Starting Mon01/02/19 at | | | 0925 | | + +---+ | | | + +---+ + +---------+ +---+ +---+ | electrolyte-A (PLASMALYTE-A) | New Bag | | | 30 mL/hr | | | solution at 30 mL/hr, | | 9 07:17 | | | | | Intravenous, Continuous, Starting | | PDT | | | | | Mon01/02/19 at 0730 | | | | | [...] Moderate Pain (4-6), | | | Starting [facility] 01/02/19 at 0925 | | + +---+ [...] to | | | option 2., Starting [facility] 01/02/19 | | | at 0830, PACU | | + +---+ | | | + +---+ | labetalol (NORMODYNE) 5 mg/mL | | | injection 20 mg 20 mg, | | | Intravenous, Every 10 Min PRN, | | | For MAP greater than 100, | | | Starting 01/02/19 at 0830, | | | PACU | [...] nausea or | | | vomiting, Starting 01/02/19 at | | | 0830, For 1 [...]
--- OUTSIDE RECORDS SUMMARY | ~2019-01-04 | XMS | Clinical Summary ---
Demographics + + + | Address | [address] | | | [place] [address] | + + + | Home Phone | | + + + | Preferred Language | Unknown | + + + | Marital Status | | + + + | Mormonism Affiliation | Unknown | + + + [...] Team Providers + +------+ + | Care Welfare Supervisor Name | Role | Phone | + +------+ + | Fantasma Garcia MD | PP | | + +------+ + Source Comments [facility] is fully live on both [facility] and [facility] Allergies + + + + + + [...] | + + + + + | Influenza (Flu) | | | | | vaccination (#1) | 8 | | | + [...] | BCBS | xxxxxxxxxxx | PPO | +1--- | [address] [address] [place] | | SHIELD | OUT OF | x | | [address] | [place], [place] | | | [place] | | | | [address] | + +--------+ +------+ + + + [...] | | al/Fam | | 1979 | [phone] | [place] [address] | | | rick | | | [address] | | + +--------+ +--------+ + +
--- OUTSIDE RECORDS SUMMARY | ~2019-01-04 | XMS | Encounter Summary ---
Demographics + + + | Address | [address] | | | [place] [address] | + + + | Home Phone | | + + + | Preferred Language | Unknown | + + + | Marital Status | | + + + | Jainism Affiliation | Unknown | + + + | Race | Unknown | + + + | Ethnic Group | Unknown | + + + Author + + + | Author | [facility] | + + + | Organization | [facility] | + + + | Address | Unknown | + + + | Phone | Unavailable | + + + Support + + + + + | Name | Relationship | Address | Phone | + + + + + | Iman Stahl | ECON | [place] | | | | | [address] | | + + + + + | Jose Wallace | ECON | [place] | | | | | [address] | | + + + + + Care Team Providers + +------+ + | Care Grill Chef Name | Role | Phone | + [...] | | and advice | [place], | [place], [place] | | | | | on | [place] [address] | [address] Phone: | | | | | contraceptio | Phone: | [phone] | | | | | n | [phone] | Fax: | | | | | | Fax: | [phone] | | | | | | [phone] | | + + + + + [...] | (Primary Dx); | | | | [place], [place] | [address] [place], | Varicocele | | | | [address] | [place] [address] | | | | | [phone] | [phone] | | | | | | | [...] and schedule Per Admission appointment [facility]. It is important to have a Per Admission Appointment to assure your safety [facility] anesthesia and surgery. Location: [facility] ([address] [place] [address]) Time: The day before surgery someone from [...] IT OFF OR FAX IT TO US ([phone]) AT LEAST 2 WEEKS PRIOR TO SURGERY. MAKE SURE TO IN CLUDE TIME OFF NEEDED/WHEN YOU PLAN TO RETURN TO WORK. #04. 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
--- OUTSIDE RECORDS SUMMARY | ~2019-01-04 | XMS | Encounter Summary ---
Demographics + + + | Address | [address] | | | [place] [address] | + + + | Home Phone | | + + + | Preferred Language | Unknown | + + + | Marital Status | | + + + | Buddhism Affiliation | Unknown | + + + | Race | Unknown | + + + | Ethnic Group | Unknown | + + + Author + + + | Author | [facility] | | | and [place] | + + + | Organization | [facility] | | | and [place] | + + + | Address | Unknown | + + + | Phone | Unavailable | + + + Support + + + + + | Name | Relationship | Address | Phone | + + + + + | Iman Stahl | ECON | [place], [place] | | | | | [address] | | + + + + + | Jose Wallace | ECON | [place], [place] | | | | | [address] | | + + + + + Care Team Providers + +------+ + | Care Qc Scientist Name | Role | Phone | + +------+ + | Fantasma Garcia MD | PCP | | + +------+ + Encounter Details +--------+ + + + + | Date | Type | Department | Care Team | Description | +--------+ + + + + | 11/16/ | Ancillary | [facility] | Provider, | | | 2019 | Orders | MED CTR EXTERNAL | [address] | | | | | IMAGING | [address] [place] | | | | | [phone] | [place] [address] | | +--------+ + + + + [...] [address] | | | | | | [place], [place] | | | | | | [address] | | | | | | | | +--------+---------+ + + + as of this encounter Results XR Lumbar Spine 4 + Vw (04/04/2013 1615) + + + | Narrative | Performed [...]
--- OUTSIDE RECORDS SUMMARY | ~2019-01-04 | XMS | Encounter Summary ---
Demographics + + + | Address | [address] | | | [place] [address] | + + + | Home Phone | | + + + | Preferred Language | Unknown | + + + | Marital Status | | + + + | Zoroastrian Affiliation | Unknown | + + + | Race | Unknown | + + + | Ethnic Group | Unknown | + + + Author + + + | Author | [facility] | + + + | Organization | [facility] | + + + | Address | Unknown | + + + | Phone | Unavailable | + + + Support + + + + + | Name | Relationship | Address | Phone | + + + + + | Iman Stahl | ECON | [place] | | | | | [address] | | + + + + + | Jose Wallace | ECON | [place] | | | | | [address] | | + + + + + Care Team Providers + +------+ + | Care Elementary Education Teacher Name | Role | Phone | [...] + + + + | 01/02/ | Anesthesia | [facility] | Reno Huff, | | | 2019 | Event | [facility] | [address] | | | | | Operating Room [address] | [place] [address] | | | | | [address] | [phone] | | | | | [place] [address] | | | | | | [phone] | | | +--------+ + + + + Anesthesia Record + + + + + | Procedure Name | Responsible | Anesthesia Start | Anesthesia Stop Time | | | Anesthesiologist | Time | | + + + + + | VASECTOMY (N/A | Reno Huff MD | 01/02/19 0755 | 01/02/19 0839 | | Scrotum) | | | | + + + + + +----+---+ + + | Da | T | Event | Comment | | te | i | | | | | m | | | | | e | | | +----+---+ + + | 03 | 0 | An Start | Pre-anesthetic vital signs reassessed. | | /1 | 7 | | | | 3/ | 5 | | | | 20 | 5 | | | | 19 | | | | +----+---+ + + | | 0 | An | | | | 7 | Induction | | | | 5 | | | | | 9 | | | +----+---+ + + | | 0 | An | | | | 7 | Intubation | | | | 5 | | | | | 9 | | | +----+---+ + + | | 0 | An | | | | 8 | Emergence | | | | 3 | | | | | 3 | | | +----+---+ + + | | 0 | Extubation | | | | 8 | | | | | 3 | | | | | 4 | | | +----+---+ + + | | 0 | An Stop | | | | 8 | | | | | 3 | | | | | 9 | | | +----+---+ + + +------+ | Meds | +------+ + +---------+ | Name | Total | + +---------+ | ceFAZolin (ANCEF) 1 g | 2 g | + +---------+ | fentanyl 50 mcg/mL | 100 mcg | + +---------+ | lidocaine 2% | 50 mg | + +---------+ | propofol bolus | 300 mg | + +---------+ | dexamethasone 4 mg/mL | 4 mg | + +---------+ | ondansetron 2 mg/mL | 4 mg | + +---------+ | plasmalyte-A | 600 mL | + +---------+ + + | Name | + + | N2O | + + | O2 | + + | Air | + + | Sevoflurane-EX | + + | N2O | + + + + | No blood administrations on file. | + + +--------+ + + + | Type | Details | Placement | Removal | +--------+ + + + | Wound | 01/02/19; 823; Incision; Groin; | 01/02/19823 by | | | | Marilia | Margie Huynh | | | | | ROSIO Huang | | +--------+ + + + | Periph | Placement Date: 01/02/19; | 01/02/19705 by Abilio | 01/02/19 0932 by | | ronald | Placement Time: 705; Removal | Madalyn Lima RN | Marquita Guerrier, | | RAMON | Date: 01/02/19; Removal Time: | | RN | | | 32; Size (Gauge): 20 G; | | | | | Orientation: Right; Location: | | | | | Antecubital; Site Prep: | | | | | Chlorhexidine-Isopropyl Alcohol; | | | | | Insertion Attempts: 2 | | | +--------+ + + + in this encounter Social History + +-------+ +--------+ + | [...] | | | | | | [address] | | | | | | [place] [address] | | | | | | [phone] | | | | | | | | +--------+---------+ + + + as of this encounter Visit Diagnoses Not on filein this encounter Administered Medications + +--------+ +------+------+------+ | Medication Order | MAR | Action | Dose | Rate | Site | | | Action | Date | | | | + +--------+ +------+------+------+ | ceFAZolin (ANCEF) injection | Given | | 2 g | | | | Intravenous, PRN, Starting Wed | | 9 07:55 | | | | | 01/02/19 at 0755, Anesthesia | | PDT | | | | | Intra-op | | | | | | + +--------+ +------+------+------+ +---+---+ | | | +---+---+ + +-------+ +------+---+---+ | dexamethasone (DECADRON) 4 | Given | | 4 mg | | | | MG/ML injection PRN, Starting | | 9 08:19 | | | | | Mon01/02/19 at 0819, Anesthesia | | PDT | | | | | Intra-op | | | | | | + +-------+ +------+---+---+ +---+---+ | | | +---+---+ + +---------+ +---+---+---+ | electrolyte-A (PLASMALYTE-A) | New Bag | | | | | | solution Intravenous, Continuous | | 9 07:55 | | | | | PRN, Starting Mon01/02/19 at | | PDT | | | | | 0755, Anesthesia Intra-op | | | | | | + +---------+ +---+---+---+ +---+---+ | | | +---+---+ + +-------+ +--------+---+---+ | fentaNYL (SUBLIMAZE) injection | Given | | 50 mcg | | | | Intravenous, PRN, Starting Wed | | 9 08:04 | | | | | 01/02/19 at 0804, Anesthesia | | PDT | | | | | Intra-op | | | | | | + +-------+ +--------+---+---+ +-------+ +--------+---+---+ | Given | | 50 mcg | | | | | 9 08:06 | | | | | | PDT | | | | +-------+ +--------+---+---+ +---+---+ | | | +---+---+ + +-------+ +-------+---+---+ | lidocaine 2 % (MDV) 2 % | Given | | 50 mg | | | | injection Intravenous, PRN, | | 9 08:03 | | | | | Starting 01/02/19 at 0803, | | PDT | | | | | Anesthesia Intra-op | | | | | | + +-------+ +-------+---+---+ +---+---+ | | | +---+---+ + +-------+ +------+---+---+ | ondansetron (ZOFRAN) injection | Given | | 4 mg | | | | PRN, Nausea, Vomiting, Starting | | 08:19 | | | | | 01/02/19 at 0819, Anesthesia | | PDT | | | | | Intra-op | | | | | | + +-------+ +------+---+---+ +---+---+ | | | +---+---+ + +-------+ +--------+---+---+ | propofol (DIPRIVAN) injection | Given | | 200 mg | | | | Intravenous, PRN, Starting Wed | | 08:03 | | | | | 01/02/19 at 0803, Anesthesia | | PDT | | | | | Intra-op | | | | | | + +-------+ +--------+---+---+ +-------+ +--------+---+---+ | Given | | 100 mg | | | | | 9 08:23 | | | | | | PDT | | | | +-------+ +--------+---+---+ +---+---+ | | | +---+---+ in this encounter"
--- OUTSIDE RECORDS SUMMARY | ~2019-01-04 | XMS | Clinical Summary ---
Demographics + + + | Address | [address] | | | [place] [address] | + + + | Home Phone | | + + + | Preferred Language | Unknown | + + + | Marital Status | | + + + | Catholic Affiliation | Unknown | + + + | Race | Unknown | + + + | Ethnic Group | Unknown | + + + Author + + + | Author | [facility] | + + + | Organization | [facility] | + + + | Address | Unknown | + + + | Phone | Unavailable | + + + Support + + + + + | Name | Relationship | Address | Phone | + + + + + | Iman Stahl | ECON | [place] | | | | | [address] | | + + + + + | Jose Wallace | ECON | [place] | | | | | [address] | | + + + + + Care Team Providers + +------+ + | Care Marshmallow Runner Name | Role | Phone | + [...] + | 01/02/ | Surgery | | Kenyon Mckinney, | VASECTOMY | | [...] | | | | | | [facility] | | | | | | [place] [address] | | | | | | [phone] | | | | | | | [...] component was | | | performed by [facility] [address] | | | (Forestry Aide: Debbie Bennett MD; CLIA# [id number]). Professional | | | [facility] | | | [address] [address] (Medical | | | Director: Bismark He M.D.; CLIA#: [id number]). | | | Diagnostician: Prudencio Carreno MD [...] + + + + | Calculated P [place] | 28 | degrees | [facility] | + + + + + | Calculated R [place] | 14 | degrees | [facility] | + + + + + | Calculated T [place] | 13 | degrees | [facility] | + + + + + | Diagnosis | Normal sinus | | [facility] EKG | | | rhythmNormal [...] | + + + + + | [facility] EK | [address] | [place] [address] | | + + + + + from Last 3 Months Insurance + +--------+ +------+-------+---------+ | Payer | Benefi | Subscriber | Type | Phone | Address | | | t Plan | ID | | | | | | / | | | | | | | Group | | | | | + +--------+ +------+-------+---------+ | [employer] | UNITED | [id number] | | | | | | | [...] | [place] | | | [id number] | [address] | + +--------+ +--------+ + +
--- OUTSIDE RECORDS SUMMARY | ~2019-01-04 | XMS | Encounter Summary ---
Demographics + + + | Address | [address] | | | [place] [address] | + + + | Home Phone | | + + + | Preferred Language | Unknown | + + + | Marital Status | | + + + | Pentecostal Affiliation | Unknown | + + + | Race | Unknown | + + + | Ethnic Group | Unknown | + + + Author + + + | Author | [facility] | + + + | Organization | [facility] | + + + | Address | Unknown | + + + | Phone | Unavailable | + + + Support + + + + + | Name | Relationship | Address | Phone | + + + + + | Iman Stahl | ECON | [place] | | | | | [address] | | + + + + + | Jose Wallace | ECON | [place] | | | | | [address] | | + + + + + Care Team Providers + +------+ + | Care Hosiery Bagger Name | Role | Phone | + +------+ + | Fantasma Garcia MD | PCP | | + +------+ + Encounter Details +--------+ + + + + | Date | Type | Department | Care Team | Description | +--------+ + + + + | 01/02/ | Procedure | [facility] | | | | 2019 | [facility] | [facility] | | | | | | Operating Room 888 | | | | | | [address] | | | | | | [place] [address] | | | | | | [phone] | | | +--------+ + + + [...] | | 2018 | Visit | | GOPLA Malik | | | | | | [facility] | | | | | | [place] [address] | | | | | | [phone] | | | | | | | | +--------+---------+ + + + as of this encounter Visit Diagnoses Not on filein this encounter"
--- OUTSIDE RECORDS SUMMARY | ~2019-01-04 | XMS | Clinical Summary ---
Demographics + + + | Address | [address] | | | [place] [address] | + + + | Home Phone | | + + + | Preferred Language | Unknown | + + + | Marital Status | | + + + | Jehovah'S Witness Affiliation | Unknown | + + + | Race | Unknown | + + + | Ethnic Group | Unknown | + + + Author + + + | Author | [facility] | | | and [place] | + + + | Organization | [facility] | | | [facility] [place] | + + + | Address | Unknown | + + + | Phone | Unavailable | + + + Support + + + + + | Name | Relationship | Address | Phone | + + + + + | Iman Stahl | ECON | [place], [place] | | | | | [address] | | + + + + + | Jose Wallace | ECON | [place], [place] | | | | | [address] | | + + + + + Care Team Providers + +------+ + | Care Leaflet Distributor Name | Role | Phone | + [...] mg tablet | Daily. | | | 12/12 | | e | | | | | | 18 | | | + + +--------+---------+------+------+-------+ | nortriptyline | Take 25 mg by mouth | | | 05/0 | | Activ | | (PAMELOR) 25 mg | nightly. | | | 20 | | e | | capsule | [...] + + | 11/23/ | Ancillary | | Provider, | | | 2018 | Orders | | Historical, MD | | +--------+ + + + + | 11/19/ | Ancillary | | Provider, | | | 2018 | Orders | | Historical, MD | | +--------+ + + + + | 11/16/ | Ancillary | | Provider, | | | 2018 | Orders | | Historical, MD | | +--------+ + + + [...] | Body Mass Index | 40.68 | 02/28/2018956 PDT | + + + + Plan of Treatment +--------+---------+ + + + | Date | Type | Specialty | Care Team | Description | +--------+---------+ + + + | 02/04/ | Office | | Cano, José E A, | | | 2019 | Visit | | [address] | | | | | | [place] | | | | | | [address] | | | | | | | [...] Not on filefrom Last 3 Months Insurance +-------+--------+ +------+-------+---------+ | Payer | Benefi | Subscriber | Type | Phone | Address | | | t Plan | ID | | | | | | / | | | | | | | Group | | | | | +-------+--------+ +------+-------+---------+ | UMR | UMR | [id number] | PPO | | | | | [...] Self | [birth year] | Home: | [address] | | | al/Fam | | 1979 | [phone] | [place] | | | [place] | | | [phone] | [address] | + +--------+ +--------+ + +
--- OUTSIDE RECORDS SUMMARY | ~2019-01-04 | XMS | Encounter Summary ---
Demographics + + + | Address | [address] | | | [place] [address] | + + + | Home Phone | | + + + | Preferred Language | Unknown | + + + | Marital Status | | + + + | Anglican Affiliation | Unknown | + + + | Race | Unknown | + + + | Ethnic Group | Unknown | + + + Author + + + | Author | [facility] | + + + | Organization | [facility] | + + + | Address | Unknown | + + + | Phone | Unavailable | + + + Support + + + + + | Name | Relationship | Address | Phone | + + + + + | Iman Stahl | ECON | [place] | | | | | [address] | | + + + + + | Jose Wallace | ECON | [place] | | | | | [address] | | + + + + + Care Team Providers + +------+ + | Care Agent Contract Clerk Name | Role | Phone | + [...] + + | 01/02/ | Hospital | [facility] | Kenyon Mckinney, | Vasectomy | | 2019 | Encounter | [facility] | DO [address] | evaluation; | | | | [address] | [address] [place], | Varicocele | | | | [place] [address] | [place] [address] | | | | | [phone] | [phone] | | | | | | | [...] Don t take aspirin, ibuprofen, or naproxen wkc2cbdwp before surgery. These medicin es can cause [...] surgery The entire procedure usually lasts less nuio86tgorlcp. You ll be asked to undress and [...] feet as much as possible for the gtmkx3sdfn. Try to lie flat on a bed or sofa. Wear an athletic supporter or snug cotton briefs for support. Reduce swelling by using an ice pack or bag of frozen peas wrapped in a thin towel. Put the ice pack ortowel on your scrotum. Take medicines with acetaminophento relieve any discomfort. Don t use aspirin, ibupr ofen, or naproxen. Ozyv65spyjh before bathing. Avoid heavy lifting or exercise cmc9lcav. Ask your doctor how long to wait before having sex again. Remember: You must use another form of control until you re completely sterile. When to seek medical care Call your doctor if you notice any of the following after surgery: Increasing pain or swelling in your scrotum A large znddq-jgn-rrss area, or a growing lump Fever or [...] sex by using condoms. Date Last Reviewed: 10/23/201619993130-1111 [employer]. [address] [place] [address], [place] [id number]. All righ ts reserved. This information is [...] [place] | | | | | | [place] [address] | | | | | | [phone] | | | | | | | [...] | +---+--------+ + +------+ +---+ + | [facility] STANDARD 12 LEAD | KIM[place] | 01/02/2019 [...] component was | | | performed by [facility], [address] [facility] [address] | | | (Manager Restaurant: Debbie Bennett MD; CLIA# [id number]). Professional | | | interpretation was performed by [facility], [facility] | | | [address] [address] (Medical | | | Director: Bismark He M.D.; CLIA#: [id number]). | | | Diagnostician: Prudencio Carreno MD Pathologist Electronically | | | Signed 01/03/2019 | | + + + + +---------+ + + | Performing | Address | City/State/Zipcode | Phone Number | | Organization | | | | + +---------+ + + | [facility]Y | | | | + [...] + + + + | Calculated P [place] | 28 | degrees | [facility] | + + + + + | Calculated R [place] | 14 | degrees | [facility] | + + + + + | Calculated T [place] | 13 | degrees | [facility] EKG [...] | + + + + + | [facility] EK | [address] | [place] [address] | | + + + + + [...] Moderate Pain (4-6), | | | Starting [facility] 01/02/19 at 0925 | | + [...] to | | | option 2., Starting [facility] 01/02/19 | | | at 0830, [...]
--- OUTSIDE RECORDS SUMMARY | ~2019-01-04 | XMS | Clinical Summary ---
Demographics + + + | Address | [address] | | | [place] [address] | + + + | Home Phone | | + + + | Preferred Language | Unknown | + + + | Marital Status | | + + + | Alevism Affiliation | Unknown | + + + | Race | Unknown | + + + | Ethnic Group | Unknown | + + + Author + + + | Author | [facility] | | | and [place] | + + + | Organization | [facility] | | | and [place] | + + + | Address | Unknown | + + + | Phone | Unavailable | + + + Support + + + + + | Name | Relationship | Address | Phone | + + + + + | Iman Stahl | ECON | [place], [place] | | | | | [address] | | + + + + + | Jose Wallace | ECON | [place] | | | | | [address] | | + + + + + Care Team Providers + +------+ + | Care Head Of Research & Insights Name | Role | Phone | + [...] 2019 | Visit | | [address] | | | | | | [place] | | | | | | [address] | | | | | | | [...] +-------+--------+ +------+-------+---------+ | UMR | UMR | [id number] | PPO | | | | | [...] | [place] | | | [phone] | [address] | + +--------+ +--------+ + +
--- OUTSIDE RECORDS SUMMARY | ~2019-01-04 | XMS | Encounter Summary ---
Demographics + + + | Address | [address] | | | [place] [address] | + + + | Home Phone | | + + + | Preferred Language | Unknown | + + + | Marital Status | | + + + | Baptism Affiliation | Unknown | + + + | Race | Unknown | + + + | Ethnic Group | Unknown | + + + Author + + + | Author | [facility] | + + + | Organization | [facility] | + + + | Address | Unknown | + + + | Phone | Unavailable | + + + Support + + + + + | Name | Relationship | Address | Phone | + + + + + | Iman Stahl | ECON | [place] | | | | | [address] | | + + + + + | Jose Wallace | ECON | [place] | | | | | [address] | | + + + + + Care Team Providers + +------+ + | Care Coding Team Lead Name | Role | Phone | + [...] + + | 01/02/ | Anesthesia | [facility] | Reno Huff, | | | 2019 | Event | [facility] | [address] | | | | | Operating Room [address] | [place] [address] | | | | | [address] | [phone] | | | | | [place] [address] | | | | | | [phone] | | | +--------+ + + + [...] | | | | | [address] | | | | | | [place] [address] | | | | | | [phone] | | | | | | | [...]
--- OUTSIDE RECORDS SUMMARY | ~2019-01-04 | XMS | Encounter Summary ---
Demographics + + + | Address | [address] | | | [place] [address] | + + + | Home Phone [...] + | Iman Stahl | ECON | [place] | | | | | [address] | | + + + + + | Jose Wallace | ECON | [place] | | | | | [address] | | + + + + + Care Team Providers + +------+ + | Care Corporate Relations Director Name | Role | Phone | + [...] [address] | | | | | [phone] | [place] [address] | | +--------+ + + + + [...] [place] | | | | | | [address] | | | | | | | | +--------+---------+ + + + as of this encounter Visit Diagnoses Not on filein this encounter"
--- OUTSIDE RECORDS SUMMARY | ~2019-01-04 | XMS | Clinical Summary ---
Demographics + + + | Address | [address] | | | [place] [address] | + + + | Home Phone | | + + + | Preferred Language | Unknown | + + + | Marital Status | | + + + | Pentecostalism Affiliation [...] Team Providers + +------+ + | Care Bilingual Customer Service Specialist Name | Role | Phone | + +------+ + | Fantasma Garcia MD | PP | | + +------+ + Source Comments [facility] is fully live on both [facility] and [facility]ly [facility] Allergies + + + + [...] | PPO | +1--- | [address] [address] [place] | | SHIELD | OUT OF | x | | [address] | [place], [place] | | | [place] | | | | [address] | + +--------+ +------+ + + + [...] | | al/Fam | | 1979 | [phone] | [place] [address] | | | rick | | | [phone] | | + +--------+ +--------+ + +
--- OUTSIDE RECORDS SUMMARY | ~2019-01-04 | XMS | Encounter Summary ---
Demographics + + + | Address | [address] | | | [place] [address] | + + + | Home Phone | | + + + | Preferred Language | Unknown | + + + | Marital Status | | + + + | Zoroastrianism Affiliation | Unknown | + + + | Race | Unknown | + + + | Ethnic Group | Unknown | + + + Author + + + | Author | [facility] | | | and [place] | + + + | Organization | [facility] | | | and [place] | + + + | Address | Unknown | + + + | Phone | Unavailable | + + + Support + + + + + | Name | Relationship | Address | Phone | + + + + + | Iman Sthal | ECON | [place], [place] | | | | | [address] | | + + + + + | Jose Wallace | ECON | [place], [place] | | | | | [address] | | + + + + + Care Team Providers + +------+ + | Care Chlorine Operator Name | Role | Phone | [...] [address] | | | | | [phone] | [place] [address] | | +--------+ + + + + [...] | | | | | | [place], [place] | | | | | | [address] | | | | | | | [...]
--- OUTSIDE RECORDS SUMMARY | ~2019-01-04 | XMS | Encounter Summary ---
Demographics + + + | Address | [address] | | | [place] [address] | + + + | Home Phone | | + + + | Preferred Language | Unknown | + + + | Marital Status | | + + + | Adventism Affiliation | Unknown | + + + | Race | Unknown | + + + | Ethnic Group | Unknown | + + + Author + + + | Author | [facility] | + + + | Organization | [facility] | + + + | Address | Unknown | + + + | Phone | Unavailable | + + + Support + + + + + | Name | Relationship | Address | Phone | + + + + + | Iman Stahl | ECON | [place] | | | | | [address] | | + + + + + | Jose Wallace | ECON | [place] | | | | | [address] | | + + + + + Care Team Providers + +------+ + | Care Conference Center Manager Name | Role | Phone | [...] + + | 01/02/ | Surgery | [facility] | Kenyon Mckinney, | VASECTOMY | | 2019 | | [facility] | DO [address] | | | | | Operating Room [address] | [address] [facility] | | | | | [address] | [place] [address] | | | | | [place] [address] | [phone] | | | | | [phone] | | | +--------+---------+ + + + [...] Don t take aspirin, ibuprofen, or naproxen tpg0wdmkd before surgery. These medicin es can cause [...] surgery The entire procedure usually lasts less wrzl32zfqyzqi. You ll be asked to undress and [...] feet as much as possible for the saqoe5ymmv. Try to lie flat on a bed or sofa. Wear an athletic supporter or snug cotton briefs for support. Reduce swelling by using an ice pack or bag of frozen peas wrapped in a thin towel. Put the ice pack ortowel on your scrotum. Take medicines with acetaminophento relieve any discomfort. Don t use aspirin, ibupr ofen, or naproxen. Iqau95cpmmc before bathing. Avoid heavy lifting or exercise oxf9mshc. Ask your doctor how long to wait before having sex again. Remember: You must use another form of control until you re completely sterile. When to seek medical care Call your doctor if you notice any of the following after surgery: Increasing pain or swelling in your scrotum A large loers-yjc-tzff area, or a growing lump Fever or [...] sex by using condoms. Date Last Reviewed: 10/23/201619991541-5878 [employer]. [address] [place] [address], [place] [id number]. All [facility] ts reserved. This information is not [...] | | | | | [address] | | | | | | [place] [address] | | | | | | [phone] | | | | | | | [...] DEFERENS SPECIMEN(S): B LEFT VAS DEFERENS | [facility] | | SPECIMEN SOURCE: A. RIGHT [...] component was | | | performed by [facility], [address] [place] [address] [place] [address] | | | (Low Vision Therapist: Debbie Bennett MD; CLIA# [id number]). Professional | | | interpretation was performed by [facility], [facility] | | | [address] [address] (Medical | | | Director: Bismark He M.D.; CLIA#: [id number]). | | | Diagnostician: Prudencio Carreno MD Pathologist Electronically | | | Signed 01/03/2019 | | + + + + +---------+ + + | Performing | Address | City/State/Zipcode | Phone Number | | Organization | | | | + +---------+ + + | [facility] PATHOLOGY | | | | [...] + + + + | Calculated P [place] | 28 | degrees | [facility] | + + + + + | Calculated R [place] | 14 | degrees | [facility] | + + + + + | Calculated T [place] | 13 | degrees | [facility] E[facility] [...] | + + + + + | [facility] E[facility] | [address] | [place] [address] | | + + + + + [...]
--- OUTSIDE RECORDS SUMMARY | 2019-01-04 13:24 | XMS ---
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 Dominique VISIT COUNT (12 MO.) 3 [facility] TOTAL 3 NOTE: Visits indicate total known visits. ED/UCC VISIT TRACKING (12 MO.) 01/04/2019 13:22 [facility] [place] TYPE: Emergency COMPLAINT: - CHEST PAIN/SOB 07/05/2018 15:14 [facility] [place] TYPE: Emergency COMPLAINT: - POSS DVT R LEG DIAGNOSES: - Pain in right lower leg - Allergy status to other drugs, medicaments and biological substances status - Nicotine dependence, unspecified, uncomplicated - Other and unspecified overexertion or strenuous movements or postures, initial encounter - Strain of unspecified muscle(s) and tendon(s) at lower leg level, right leg, initial encounter 05/29/2018 22:08 [facility] [place] TYPE: Emergency COMPLAINT: - CHEST PAIN,NON INJURY DIAGNOSES: - Chest pain, unspecified - Nicotine dependence, unspecified, uncomplicated INPATIENT VISIT TRACKING (12 MO.) No inpatient visits to display in this time frame [email or web address]
[2019-01-04] MEDS ORDERED: METOPROLOL SUCC50 MG PO (13:34)
--- NOTE | 2019-01-05 20:36 | EKG ---
[facility] [address] [place], [place] [address] Signed Normal sinus rhythm Normal ECG Confirmed by MADELYN PARISH DO ([id number]) on 01/05/2019 8:36:25 PM Electronically Signed By: MADELYN PARISH DO 01/05/19 2036 PATIENT NAME: SCOTTY STEPHENS Electrocardiogram DATE OF : 80 PHYSICIAN: MADELYN PARISH DO REPORT #: [id number] REPORT IS CONFIDENTIAL AND NOT TO BE RELEASED WITHOUT AUTHORIZATION
== END 2019-01-04 13:59 | disposition left against medical advice (07) ==
LOC: ED 13:22
DX: R07.9 Chest pain, unspecified (principal); R06.02 Shortness of breath
CPT/HCPCS: 93005; 93010

== ENCOUNTER 2019-09-23 20:21 | Emergency (ER) | payer OTHER ==
[~2019-09-23] VITALS: Ht 177.8 cm; Wt 127.0 kg
[~2019-09-23 20:21] MED LIST changes: +METOPROLOL SUCC50 MG PO
--- OUTSIDE RECORDS SUMMARY | 2019-09-23 20:24 | XMS ---
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 ANDRADE CREATED. CRITERIA MET - Group Notification - PDMP CARE PROVIDERS SHERRY RUCKER [facility] 07/06/2018-Current PHONE: [phone] Tyron has no Care Guidelines for this patient. Dominique VISIT COUNT (12 MO.) 2 [facility] TOTAL 2 NOTE: Visits indicate total known visits. ED/UCC VISIT TRACKING (12 MO.) 09/23/2019 20:22 [facility] [place] TYPE: Emergency COMPLAINT: - FLU SYMPTOMS/CHEST PAIN 01/04/2019 13:22 [facility] [place] TYPE: Emergency COMPLAINT: - CHEST PAIN/SOB DIAGNOSES: - Chest pain, unspecified - Shortness of breath INPATIENT VISIT TRACKING (12 MO.) No inpatient visits to display in this time frame [email or web address]
[2019-09-23] MEDS ORDERED: OMEPRAZOLE20 M1 PO (20:36)
[2019-09-23] MEDS ORDERED: DULOXETINE HCL60 MG PO (20:36)
--- NOTE | 2019-09-24 19:46 | EKG ---
[facility] [address] [place], [place] [address] Signed Normal sinus rhythm Normal ECG When compared with ECG of 04-JAN-2019 13:28, No significant change was found Confirmed by MADELYN PARISH DO ([id number]) on 09/24/2019 7:45:56 PM Electronically Signed By: MADELYN PARISH DO 09/24/19 1946 PATIENT NAME: SCOTTY STEPHENS ZINA Electrocardiogram DATE OF : 80 PHYSICIAN: MADELYN PARISH DO REPORT #: [id number] REPORT IS CONFIDENTIAL AND NOT TO BE RELEASED WITHOUT AUTHORIZATION
== END 2019-09-24 00:25 | disposition home or self-care (01) ==
LOC: ED 20:21
DX: B34.9 Viral infection, unspecified (principal); G43.909 Migraine, unspecified, not intractable, without status migrainosus; K21.9 Gastro-esophageal reflux disease without esophagitis; G47.30 Sleep apnea, unspecified; Z87.891 Personal history of nicotine dependence; Z88.8 Allergy status to other drugs, medicaments and biological substances; Z79.899 Other long term (current) drug therapy
CPT/HCPCS: 71045; 80053; 83735; 84484; 85025; 87502; 93005; 93010; 99285-25

== ENCOUNTER 2021-03-31 22:56 | Emergency (ER) | payer OTHER ==
[~2021-03-31] VITALS: Ht 177.8 cm; Wt 139.0 kg
[~2021-03-31 22:56] MED LIST changes: +DULOXETINE HCL60 MG PO; +OMEPRAZOLE20 M1 PO
--- OUTSIDE RECORDS SUMMARY | 2021-03-31 22:58 | XMS ---
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 EReva VISIT COUNT (12 MO.) 1 [facility] TOTAL 1 NOTE: Visits indicate total known visits. ED/UCC VISIT TRACKING (12 MO.) 03/31/2021 22:57 [facility] TYPE: Emergency COMPLAINT: - LT LEG PAIN INPATIENT VISIT TRACKING (12 MO.) No inpatient visits to display in this time frame [id number]
[2021-03-31] MEDS ORDERED: MODAFINIL100 MG PO (23:30)
[2021-03-31] MEDS ORDERED: SUCRALFATE1 GM PO (23:30)
[2021-04-01] MEDS ORDERED: PREDNISONE20 MG PO (22:22)
== END 2021-04-01 02:50 | disposition home or self-care (01) ==
LOC: ED 22:56
DX: M25.562 Pain in left knee (principal); M25.572 Pain in left ankle and joints of left foot; T43.695A Adverse effect of other psychostimulants, initial encounter; Z20.822 Contact with and (suspected) exposure to COVID-19; Z87.891 Personal history of nicotine dependence; Z88.8 Allergy status to other drugs, medicaments and biological substances; Z79.899 Other long term (current) drug therapy
CPT/HCPCS: 73560; 73610; 96372; 99283-25; C9803; J1170; U0003

== ENCOUNTER 2021-04-01 21:31 | Emergency (ER) | payer OTHER ==
[~2021-04-01] VITALS: Ht 177.8 cm; Wt 139.0 kg
[~2021-04-01 21:31] MED LIST changes: +MODAFINIL100 MG PO; +SUCRALFATE1 GM PO
--- OUTSIDE RECORDS SUMMARY | 2021-04-01 21:34 | XMS ---
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 Dominique VISIT COUNT (12 MO.) 2 [facility] TOTAL 2 NOTE: Visits indicate total known visits. ED/UCC VISIT TRACKING (12 MO.) 04/01/2021 21:32 [facility] TYPE: Emergency COMPLAINT: - LEG PAIN, POSSIBLE ALLERGIC REACTION 03/31/2021 22:[address] [facility] OR TYPE: Emergency COMPLAINT: - LT LEG PAIN/ NON INJ INPATIENT VISIT TRACKING (12 MO.) No inpatient visits to display in this time frame [id number]
[2021-04-01] MEDS ORDERED: PREDNISONE20 MG PO (22:22)
== END 2021-04-01 23:07 | disposition home or self-care (01) ==
LOC: ED 21:31
DX: R21 Rash and other nonspecific skin eruption (principal); M25.50 Pain in unspecified joint; G43.909 Migraine, unspecified, not intractable, without status migrainosus; K21.9 Gastro-esophageal reflux disease without esophagitis; G47.30 Sleep apnea, unspecified; F17.200 Nicotine dependence, unspecified, uncomplicated; Z88.8 Allergy status to other drugs, medicaments and biological substances; Z79.899 Other long term (current) drug therapy
CPT/HCPCS: 96372; 99283; J1885; J7512; Q0163

== ENCOUNTER 2021-04-04 10:16 | Emergency (ER) | payer OTHER ==
[~2021-04-04] VITALS: Ht 177.8 cm; Wt 139.0 kg
[~2021-04-04 10:16] MED LIST changes: +PREDNISONE20 MG PO
[2021-04-04] MEDS ORDERED: KETOROLAC TROME10 MG PO (10:28)
[2021-04-04] MEDS ORDERED: PREDNISONE10 MG PO (10:28)
--- OUTSIDE RECORDS SUMMARY | 2021-04-04 11:00 | XMS ---
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 07/06/2018-Current PHONE: [phone] Tyron has no Care Guidelines for this patient. Dominique VISIT COUNT (12 MO.) 3 [facility] TOTAL 3 NOTE: Visits indicate total known visits. 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
[2021-04-04] MEDS ORDERED: PREDNISONE20 MG PO (11:33)
== END 2021-04-04 11:44 | disposition home or self-care (01) ==
LOC: ED 10:16
DX: M00.9 Pyogenic arthritis, unspecified (principal); L30.9 Dermatitis, unspecified; L51.9 Erythema multiforme, unspecified; G43.909 Migraine, unspecified, not intractable, without status migrainosus; K21.9 Gastro-esophageal reflux disease without esophagitis; G47.30 Sleep apnea, unspecified; F17.200 Nicotine dependence, unspecified, uncomplicated; Z88.8 Allergy status to other drugs, medicaments and biological substances; Z79.52 Long term (current) use of systemic steroids; Z79.899 Other long term (current) drug therapy
CPT/HCPCS: 99283; J7512

== ENCOUNTER 2023-12-05 20:11 | Emergency (ER) | payer OTHER ==
[~2023-12-05] VITALS: Ht 177.8 cm; Wt 134.0 kg
[~2023-12-05 20:11] MED LIST changes: +KETOROLAC TROME10 MG PO; +PREDNISONE10 MG PO
--- OUTSIDE RECORDS SUMMARY | 2023-12-05 20:14 | XMS ---
PreManage Notification: SCOTTY STEPHENS Security Upper Tier Events No recent Security Events currently on file CRITERIA MET - Group Notification CARE PROVIDERS CHAIM [facility] 04/05/2021-Current PHONE: Unknown Tyron has no Care Guidelines for this patient. Doimnique VISIT COUNT (12 MO.) 1 [facility] TOTAL 1 NOTE: Visits indicate total known visits. ED/UCC VISIT TRACKING (12 MO.) 12/05/2023 20:12 [facility] TYPE: Emergency COMPLAINT: - BLOOD PRESSURE PROBLEM INPATIENT VISIT TRACKING (12 MO.) No inpatient visits to display in this time frame [id number]
[2023-12-05] MEDS ORDERED: HYDROCHLOROTHIA25 MG PO (20:27)
[2023-12-05] MEDS ORDERED: ALLOPURINOL100 MG (20:27)
[2023-12-05 20:49] LABS: EOSINOPHILS 1.9 % (0-6); HEMATOCRIT 46.2 % (35.0-50.0); HEMOGLOBIN 15.8 g/dL (12.0-18.0); LYMPHOCYTES 33.4 % (24-44); MCH 31.4 (27-36); MCHC 34.2 g/dl (30-36); MCV 91.8 fl (81-99); MONOCYTES 5.5 % (0-12); NEUTROPHILS 58.2 % (39-80); PLATELET COUNT 270 K/uL (140-440); RBC 5.04 M/ul (4.3-5.7); RDW 13.4 (10.5-15.0)
[2023-12-05 21:07] LABS: ALBUMIN 3.6 g/dL (3.4-5.0); ALBUMIN/GLOBULIN RATIO 0.97 (1.1-2.4); ANION GAP 10.6 (7-21); BILIRUBIN, TOTAL 0.4 ng/dL (0.2-1.0); BUN/CREATININE RATIO 10.15 (6.0-28.6); CALCIUM 8.9 mg/dL (8.5-10.1); CREATININE, SERUM 1.28 mg/dL (0.70-1.30); MAGNESIUM 1.9 mg/dL (1.8-2.4); POTASSIUM 3.6 mmol/L (3.5-5.1); PROTEIN, TOTAL 7.3 g/dL (6.4-8.2)
--- NOTE | 2023-12-06 22:25 | EKG ---
[facility] [address] [place] [address] Signed Normal sinus rhythm Normal ECG When compared with ECG of 23-SEP-2019 20:28, Vent. rate has decreased BY 34 BPM Confirmed by Jonelle Chang MD () on 12/06/2023 10:24:54 PM Electronically Signed By: JONELLE CHANG MD 12/06/232224 PATIENT NAME: SCOTTY STEPHENS ZINA Electrocardiogram DATE OF : 80 PHYSICIAN: JONELLE CHANG MD REPORT #: [id number] REPORT IS CONFIDENTIAL AND NOT TO BE RELEASED WITHOUT AUTHORIZATION
== END 2023-12-05 22:03 | disposition home or self-care (01) ==
LOC: ED 20:11
PROVIDERS: Internal Medicine
DX: I10 Essential (primary) hypertension (principal); M06.9 Rheumatoid arthritis, unspecified; K21.9 Gastro-esophageal reflux disease without esophagitis; F41.9 Anxiety disorder, unspecified; G47.30 Sleep apnea, unspecified; F17.200 Nicotine dependence, unspecified, uncomplicated; Z88.8 Allergy status to other drugs, medicaments and biological substances; Z79.899 Other long term (current) drug therapy
CPT/HCPCS: 36415; 80053; 83735; 84484; 85025; 93005; 93010